=== PATIENT | male | born 1945 ===

== ENCOUNTER 2020-04-03 16:05 | Inpatient (IN) | payer OTHER ==
[~2020-04-03] VITALS: Ht 172.7 cm; Wt 85.5 kg
--- NOTE | 2020-04-03 16:21 | NUR ---
pt biba from residence, report taken from em[facility]. friends on scene state pt has no pmh, meds or allergies. pt awake, drowsy, oriented x 0. making incomprehensible noises, respiratory rate 40s, rapid and shallow. 90% on 15L nrb on arrival. sat 70s on room air per ems. 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 per pt's friends on scene, pt had complained of headache and muscle aches several days prior to this. all monitors in place. pt moaning and squirming. EDMD VanBibber at bedside.
[2020-04-03] MEDS ORDERED: SODIUM CHLORIDE 0.9% 1,000ML IVBOLUS ONE ×2 (16:30)
[2020-04-03] MEDS ORDERED: PLEASE ENTER HEIGHT AND WEIGHT MC SCH (16:30)
[2020-04-03] MEDS ORDERED: SODIUM CHLORIDE FLUSH 10ML SYR IVF ONE (16:30)
[2020-04-03] MEDS ORDERED: LORazepam 2 MG/ML, 1ML IVPush ONE (16:30)
[2020-04-03] MEDS ORDERED: LORazepam 2 MG/ML, 1ML ONE (16:33)
--- NOTE | 2020-04-03 16:39 | NUR ---
SPO2 DROPPED TO 85 % ON 15L NRB, MAINTAINING. EDMD HINDS NOTIFIED. PT ALSO VERY AGITATED, TRYING TO KICK STAFF, GET OUT OF BED, PULL LINES. 0.5 MG IV ATIVAN ORDERED Q15 MIN X 2 BY HUGO HINDS. POC TO INTUBATE IF SPO2 MAINTAINS THIS LEVEL.
--- NOTE | 2020-04-03 16:48 | NUR ---
cxr done, ekg done, piv placed x 2. pt is sinus tach rate 100s on monitor , no ectopy. spo2 83% on 15L NRB, resp rate 50s. lab at bedside for draw.
[2020-04-03 17:06] LABS: BASOPHILS % (AUTO) 0 % (0-1); EOSINOPHILS % (AUTO) 0 % (1-7); LYMPHOCYTES % (AUTO) 8 % (22-44); MEAN CORPUSCULAR HEMOGLOBIN 31.1 pg (27.5-34.5); MEAN CORPUSCULAR HGB CONC 32.7 g/dL (33.2-36.2); MEAN PLATELET VOLUME 10.1 fL (7.4-10.4); MONOCYTES % (AUTO) 11 % (2-9); NEUTROPHILS % (AUTO) 82 % (42-75); PLATELET COUNT 332 x10^3/uL (130-400); RED BLOOD COUNT 6.52 x10^6/uL (4.38-5.82)
--- NOTE | 2020-04-03 17:15 | NUR ---
at 1710, pt intubated by HUGO Salguero, tube size 8.0, 24cm at lip. vent set per RT, rate 16, 450mL tidal volume, 100% fio2. 5 peep assist control. RN instructed by HUGO Salguero to initiate propofol gtt for sedation. soft wrist restraints in place bilaterally.
[2020-04-03 17:20] LABS: ALANINE AMINOTRANSFERASE 34 U/L (12-78); ALBUMIN 2.5 g/dL (3.4-5.0); ANION GAP 15 mmol/L (5-15); CALCIUM 8.7 mg/dL (8.5-10.1); CHLORIDE 128 mmol/L (98-107); CREATININE 4.17 mg/dL (0.7-1.3)
[2020-04-03 17:22] LABS: ALKALINE PHOSPHATASE 138 U/L (45-117); BILIRUBIN,TOTAL 1.9 mg/dL (0.2-1.0); MD NO; TOTAL PROTEIN 7.7 g/dL (6.4-8.2)
[2020-04-03] MEDS ORDERED: ETOMIDATE 20 MG/10 ML IVPush ONE (17:30)
[2020-04-03] MEDS ORDERED: SUCCINYLCHOLINE 20 MG/ML, 10ML IVPush ONE (17:30)
[2020-04-03] MEDS ORDERED: AZITHROMYCIN 500 MG in SODIUM CHLORIDE 0.9% 250 ML IV ONE (17:30)
[2020-04-03] MEDS ORDERED: CEFTRIAXONE PMX 1GM/50ML 50 ML IV ONE (17:30)
[2020-04-03] MEDS ORDERED: CEFTRIAXONE PMX 1GM/50ML 50 ML ONE (17:41)
[2020-04-03 17:45] LABS: ACETONE, SERUM Negative (Negative)
[2020-04-03] MEDS: MIDAZOLAM 1 MG/ML, 5ML IVPush PRN ×4 (17:51→21:30)
[2020-04-03] MEDS ORDERED: INSULIN REGULAR 100 UNITS/ML, 3ML VIAL IVPush ONE (18:00)
[2020-04-03] MEDS ORDERED: MIDAZOLAM 1 MG/ML, 5ML ONE (18:00)
[2020-04-03] MEDS ORDERED: SUCCINYLCHOLINE 20 MG/ML, 10ML ONE (18:00)
[2020-04-03] MEDS ORDERED: PROPOFOL 10 MG/ML, 100ML IV ONE (18:00)
[2020-04-03] MEDS ORDERED: ETOMIDATE 20 MG/10 ML ONE (18:00)
--- NOTE | 2020-04-03 18:20 | NUR ---
EDNM VANBIBBER NOTIFIED PT HYPOTENSIVE AT 75/47, APPROX 1500ML NS BOLUS INFUSED SO FAR. EDNM VANBIBBER DECLINES TO ORDER VASOPRESSORS AT THIS TIME, TO REASSESS WHEN FULL BOLUS IN. EDMD NOTIFIED PT MEETS CRITERIA FOR SEPTIC SHOCK, ADDITIONAL 500ML NS BOLUS ORDERED TO COMPLETE WEIGHT BASED DOSE.
[2020-04-03] MEDS ORDERED: PROPOFOL 100 ML IV PRN (18:30)
[2020-04-03] MEDS ORDERED: NOREPINEPHRINE 8 MG in SODIUM CHLORIDE 0.9% 242 ML IV PRN ×2 (18:30→19:30)
[2020-04-03] MEDS ORDERED: INSULIN SINGLE DOSE, ER ONE (18:31)
[2020-04-03 18:38] LABS: MICROSCOPIC INDICATED
[2020-04-03] MEDS ORDERED: FENTANYL PF 100 MCG/2ML ONE (18:41)
--- NOTE | 2020-04-03 18:44 | NUR ---
VERBAL ORDER RECEIVED TO START LEVOPHED DRIP THROUGH PERIPHERAL LINE. EDMD VANBIBBER AT BEDSIDE FOR CENTRAL LINE PLACEMENT.
[2020-04-03 18:47] LABS: AMPHETAMINE SCREEN, URINE Negative (Negative); BARBITURATE SCREEN, URINE Negative (Negative); BENZODIAZEPINE SCREEN, URINE Negative (Negative); CANNABINOID SCREEN, URINE Negative (Negative); COCAINE SCREEN, URINE Negative (Negative); METHADONE SCREEN, URINE Negative (Negative); OPIATE SCREEN, URINE Negative (Negative)
--- NOTE | 2020-04-03 18:48 | NUR ---
VERBAL ORDER RECEIVED FOR 150MCG FENTANYL IV PUSH ONCE FROM [facility] VANBIBBER FOR SEDATION DURING CENTRAL LINE PLACEMENT. NOREPI INFUSING THROUGH RIGHT WRIST 20 G AT 0.1 MCG/KG/MIN, PROPOFOL INFUSING AT 5MCG/KG/MIN THROUGH LEFT WRIST 20G. 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 [facility] NIKHILBBER AT BEDSIDE FOR CENTRAL LINE PLACEMENT.
[2020-04-03] MEDS ORDERED: FENTANYL PF 100 MCG/2ML IVPush ONE (19:00)
[2020-04-03] MEDS ORDERED: SODIUM BICARB 8.4%,50ML SYR. 100 MEQ in SODIUM CHLORIDE 0.45% 1,000 ML IV SCH (19:00)
[2020-04-03] MEDS ORDERED: SODIUM CHLORIDE 0.9%, 500ML IVBOLUS ONE (19:00)
--- NOTE | 2020-04-03 19:00 | NUR ---
report to RNs Vicki and Sommer at bedside. HUGO Salguero finishing central line placement at this time.
--- NOTE | 2020-04-03 19:04 | NUR ---
REPORT FROM TREY CANALES. PTS BP STILL LOW AFTER CENTRAL LINE PLACEMENT. LEVOPHED INCREASED. WAITING FOR XRAY TO CONFIRM PLACEMENT FOR USE OF CENTRAL LINE
--- NOTE | 2020-04-03 19:13 | NUR ---
TECH AT BEDSIDE FOR EKG AT THIS TIME
[2020-04-03] MEDS ORDERED: PHARMACY MAY ADJ FOR RENAL FX MC SCH (19:30)
[2020-04-03] MEDS ORDERED: SODIUM BICARBONATE 8.4% 150 MEQ in SODIUM CHLORIDE 0.45% 1,000 ML IV SCH (19:30)
[2020-04-03] MEDS ORDERED: LIDOCAINE-MPF 1%, 2ML ENDO PRN (19:30)
[2020-04-03] MEDS ORDERED: BISACODYL 10 MG SUPP PR PRN ×2 (19:30)
[2020-04-03] MEDS ORDERED: SENNA 176 MG/5 ML ORAL SOL NG PRN (19:30)
[2020-04-03] MEDS ORDERED: INSULIN LISPRO 100 UNITS/ML, PEN SQ-INSULIN SCH (19:30)
[2020-04-03] MEDS ORDERED: LORazepam 2 MG/ML, 1ML IVPush PRN (19:30)
--- NOTE | 2020-04-03 19:40 | NUR ---
SODIUM BICARB STARTED AT THIS TIME, ZITHROMAX STARTED CULTURES DRAWN PRIOR TO ABX START.
[2020-04-03] MEDS: PROPOFOL 100 ML IV PRN (19:44)
--- NOTE | 2020-04-03 20:12 | NUR ---
REPORT GIVEN TO KARL CANALES. PT READY FOR TRANSFER TO ICU [address] IS COMPLETE
--- NOTE | 2020-04-03 20:20 | NUR ---
CT CALLED AND RESPIRATORY CALLED FOR PT TO GET CT PRIOR TO ICU TRANSFER
--- NOTE | 2020-04-03 20:29 | NUR ---
pt became agitated while prepping for transfer. sedation increased and documented
[2020-04-03] MEDS ORDERED: FAMOTIDINE 20 MG/2 ML IVPush SCH (21:00)
[2020-04-03] MEDS: D5%-0.45NACL+KCL 20MEQ 1,000 ML IV SCH (21:13)
[2020-04-03] MEDS: HEPARIN 5,000 UNITS/ML, 1ML SQ SCH (21:36)
[2020-04-03] MEDS: FAMOTIDINE 20 MG/2 ML IV SCH (21:36)
[2020-04-03 22:25] LABS: POTASSIUM,URINE RANDOM 50 mmol/L; SODIUM,URINE RANDOM 9 mmol/L
[2020-04-03 22:27] LABS: CHLORIDE,URINE RANDOM < 10 mmol/L
[2020-04-03] MEDS: REGULAR INSULIN 100 UNITS in SODIUM CHLORIDE 0.9% 99 ML IV PRN (22:51)
[2020-04-03 23:00] VITALS: BP 89/55
[2020-04-03] MEDS ORDERED: SODIUM BICARBONATE 8.4% 50 MEQ in SODIUM CHLORIDE 0.45% 1,000 ML IV SCH (23:00)
[2020-04-03] MEDS ORDERED: SODIUM CHLORIDE 0.45% 1,000 ML IV SCH (23:00)
[2020-04-04 00:25] LABS: ACETONE, SERUM Moderate(40mg/dL) (Negative)
[2020-04-04 00:30] LABS: ALBUMIN 2.1 g/dL (3.4-5.0); CHLORIDE 130 mmol/L (98-107)
[2020-04-04 00:36] LABS: ANION GAP 10 mmol/L (5-15); CREATININE 3.71 mg/dL (0.7-1.3)
[2020-04-04] MEDS: PROPOFOL 100 ML IV PRN ×4 (01:51→23:45)
[2020-04-04] MEDS ORDERED: SODIUM CHLORIDE 0.45%, 1,000ML IVBOLUS ONE (03:00)
[2020-04-04] MEDS: D5%-0.45NACL+KCL 20MEQ 1,000 ML IV SCH (03:09)
[2020-04-04] MEDS: NOREPINEPHRINE 8 MG in SODIUM CHLORIDE 0.9% 242 ML IV PRN ×4 (04:08→23:55)
[2020-04-04] MEDS: REGULAR INSULIN 100 UNITS in SODIUM CHLORIDE 0.9% 99 ML IV PRN (04:29)
[2020-04-04] MEDS: HEPARIN 5,000 UNITS/ML, 1ML SQ SCH ×3 (04:57→21:17)
[2020-04-04 04:58] LABS: BASOPHILS % (AUTO) 1 % (0-1); EOSINOPHILS % (AUTO) 0 % (1-7); LYMPHOCYTES % (AUTO) 10 % (22-44); MEAN CORPUSCULAR HEMOGLOBIN 31.8 pg (27.5-34.5); MEAN CORPUSCULAR HGB CONC 34.2 g/dL (33.2-36.2); MEAN PLATELET VOLUME 9.4 fL (7.4-10.4); MONOCYTES % (AUTO) 5 % (2-9); NEUTROPHILS % (AUTO) 84 % (42-75); PLATELET COUNT 228 x10^3/uL (130-400); RED BLOOD COUNT 5.49 x10^6/uL (4.38-5.82); RED CELL DISTRIBUTION WIDTH 13.8 % (9.4-14.8)
[2020-04-04 05:02] LABS: ANION GAP 9 mmol/L (5-15); CHLORIDE 130 mmol/L (98-107)
[2020-04-04 05:03] LABS: BILIRUBIN,TOTAL 1.8 mg/dL (0.2-1.0)
[2020-04-04 05:22] LABS: BILIRUBIN,INDIRECT 0.8 mg/dL (0.0-2.0)
[2020-04-04 05:56] LABS: MD SCAN
[2020-04-04] MEDS: SODIUM BICARBONATE 8.4% 50 MEQ in DEXTROSE 5% 1,000 ML IV SCH ×3 (09:26→23:54)
[2020-04-04] MEDS: THIAMINE 200 MG in SODIUM CHLORIDE 0.9% 50 ML IV SCH (09:27)
[2020-04-04] MEDS: FENTANYL PF 1,000 MCG in SODIUM CHLORIDE 0.9% 80 ML IV PRN ×2 (09:27→19:38)
[2020-04-04] MEDS ORDERED: INSULIN GLARGINE 100 UNITS/ML, PEN SQ-INSULIN SCH ×2 (10:00→21:00)
[2020-04-04] MEDS: INSULIN LISPRO 100 UNITS/ML, PEN SQ-INSULIN SCH ×5 (10:00→19:46)
[2020-04-04] MEDS ORDERED: INSULIN LISPRO 100 UNITS/ML, PEN SQ-INSULIN SCH (11:00)
[2020-04-04 12:04] LABS: ANION GAP 5 mmol/L (5-15); CALCIUM 7.1 mg/dL (8.5-10.1); CHLORIDE 130 mmol/L (98-107); CREATININE 2.79 mg/dL (0.7-1.3)
[2020-04-04] MEDS ORDERED: INSULIN GLARGINE 100 UNITS/ML, PEN ONE (14:33)
[2020-04-04] MEDS: CEFTRIAXONE PMX 1GM/50ML 50 ML IV SCH (16:29)
[2020-04-04] MEDS ORDERED: REMDESIVIR 100 MG in SODIUM CHLORIDE 0.9% 250 ML IVPB ONE ×2 (17:00→19:00)
[2020-04-04] MEDS ORDERED: ASCORBIC ACID 500 MG TABLET PO SCH (17:00)
[2020-04-04] MEDS: AZITHROMYCIN 500 MG in SODIUM CHLORIDE 0.9% 250 ML IV SCH (17:12)
[2020-04-04 18:27] LABS: ANION GAP 5 mmol/L (5-15); CALCIUM 6.8 mg/dL (8.5-10.1); CHLORIDE 125 mmol/L (98-107); CREATININE 2.68 mg/dL (0.7-1.3)
[2020-04-04 18:29] LABS: C-REACTIVE PROTEIN, QUANT 5.6 mg/dL (0.02-0.49)
[2020-04-04] MEDS: ASCORBIC ACID 500 MG TABLET PO SCH (21:17)
[2020-04-04] MEDS: MELATONIN 5 MG TABLET PO/NG SCH (21:17)
[2020-04-04] MEDS: FAMOTIDINE 20 MG/2 ML IV SCH (21:18)
[2020-04-05] MEDS: INSULIN LISPRO 100 UNITS/ML, PEN SQ-INSULIN SCH ×8 (03:16→23:44)
[2020-04-05 03:44] LABS: ALANINE AMINOTRANSFERASE 20 U/L (12-78); ALBUMIN 1.7 g/dL (3.4-5.0); ANION GAP 4 mmol/L (5-15); CALCIUM 6.8 mg/dL (8.5-10.1); CHLORIDE 123 mmol/L (98-107); CREATININE 2.18 mg/dL (0.7-1.3)
[2020-04-05 03:45] LABS: MEAN CORPUSCULAR HEMOGLOBIN 31.8 pg (27.5-34.5); MEAN CORPUSCULAR HGB CONC 34.4 g/dL (33.2-36.2); MEAN PLATELET VOLUME 9.7 fL (7.4-10.4); RED BLOOD COUNT 5.14 x10^6/uL (4.38-5.82); RED CELL DISTRIBUTION WIDTH 13.7 % (9.4-14.8)
[2020-04-05 03:47] LABS: ALKALINE PHOSPHATASE 108 U/L (45-117); BILIRUBIN,TOTAL 1.7 mg/dL (0.2-1.0); TOTAL PROTEIN 5.3 g/dL (6.4-8.2)
[2020-04-05 04:15] LABS: MD YES; PLATELET COUNT 78 x10^3/uL (130-400)
[2020-04-05 04:18] LABS: BAND#(MANUAL) 0.33 x10^3/uL; BANDS%(MANUAL) 3 % (0-7); BASOS#(MANUAL) 0.22 x10^3/uL (0-0.1); BASOS% (MANUAL) 2 % (0-1); EOS#(MANUAL) 0.11 x10^3/uL (0.0-0.4); EOS% (MANUAL) 1 % (1-7); LYMPH#(MANUAL) 0.76 x10^3/uL (1-3.4); LYMPHS% (MANUAL) 7 % (22-44); MONOS#(MANUAL) 0.22 x10^3/uL (0.3-2.7); MONOS% (MANUAL) 2 % (2-9); MYELOCYTES# (MANUAL) 0.11 x10^3/uL (0-0); MYELOCYTES% (MANUAL) 1 % (0-0); SEG#(MANUAL) 9.16 x10^3/uL (1.8-6.8); SEGS% (MANUAL) 84 % (42-75)
[2020-04-05 04:19] LABS: ANISOCYTOSIS 1+; POLYCHROMASIA 1+
[2020-04-05 04:20] LABS: <PLATELET ESTIMATE> DECREASED; <PLT MORPHOLOGY> NORMAL PLT MORPH
[2020-04-05] MEDS: PROPOFOL 100 ML IV PRN ×3 (05:28→17:02)
[2020-04-05] MEDS: HEPARIN 5,000 UNITS/ML, 1ML SQ SCH (05:29)
[2020-04-05] MEDS: SODIUM BICARBONATE 8.4% 50 MEQ in DEXTROSE 5% 1,000 ML IV SCH ×2 (05:56→07:49)
[2020-04-05] MEDS ORDERED: MAGNESIUM SULFATE PMX 2GM/50ML 50 ML IV ONE (07:00)
[2020-04-05] MEDS: FENTANYL PF 1,000 MCG in SODIUM CHLORIDE 0.9% 80 ML IV PRN (07:49)
[2020-04-05 08:35] LABS: D-DIMER (DIC) 34.53 ug/mlFEU (0.00-0.52); PROTIME 12.7 Seconds (9.6-11.5)
[2020-04-05] MEDS: ZINC SULFATE 220 MG CAPSULE PO SCH (08:40)
[2020-04-05] MEDS: CHOLECALCIFEROL 5,000u TAB PO SCH (08:40)
[2020-04-05] MEDS: ASCORBIC ACID 500 MG TABLET PO SCH ×2 (08:40→20:53)
[2020-04-05] MEDS: THIAMINE 200 MG in SODIUM CHLORIDE 0.9% 50 ML IV SCH (08:40)
[2020-04-05] MEDS: DEXAMETHASONE 4 MG/ML, 1ML IVPush SCH (08:40)
[2020-04-05] MEDS ORDERED: INSULIN GLARGINE 100 UNITS/ML, PEN SQ-INSULIN SCH ×2 (09:00→21:00)
[2020-04-05] MEDS ORDERED: INSULIN LISPRO 100 UNITS/ML, PEN SQ-INSULIN SCH ×3 (10:00→16:00)
[2020-04-05] MEDS: ARGATROBAN 250 MG in SODIUM CHLORIDE 0.9% 247.5 ML IV PRN (11:07)
[2020-04-05] MEDS: DEXTROSE 5% 1,000 ML IV SCH ×2 (11:08→17:45)
[2020-04-05] MEDS: NOREPINEPHRINE 8 MG in SODIUM CHLORIDE 0.9% 242 ML IV PRN ×2 (11:47→17:02)
[2020-04-05] MEDS ORDERED: FENTANYL PF 2,500 MCG in SODIUM CHLORIDE 0.9% 200 ML IV PRN (14:30)
[2020-04-05] MEDS ORDERED: INSULIN LISPRO 100 UNITS/ML, PEN SQ-INSULIN ONE (16:30)
[2020-04-05] MEDS: CEFTRIAXONE PMX 1GM/50ML 50 ML IV SCH (16:55)
[2020-04-05] MEDS: AZITHROMYCIN 500 MG in SODIUM CHLORIDE 0.9% 250 ML IV SCH (17:41)
[2020-04-05] MEDS: REMDESIVIR 50 MG in SODIUM CHLORIDE 0.9% 250 ML IVPB SCH (19:29)
[2020-04-05] MEDS: MELATONIN 5 MG TABLET PO/NG SCH (20:53)
[2020-04-05] MEDS: FAMOTIDINE 20 MG/2 ML IV SCH (20:53)
[2020-04-06] MEDS: NOREPINEPHRINE 8 MG in SODIUM CHLORIDE 0.9% 242 ML IV PRN ×2 (02:00→20:43)
[2020-04-06] MEDS: PROPOFOL 100 ML IV PRN ×2 (02:01→20:43)
[2020-04-06] MEDS: FENTANYL PF 2,500 MCG in SODIUM CHLORIDE 0.9% 200 ML IV PRN (03:33)
[2020-04-06] MEDS: INSULIN LISPRO 100 UNITS/ML, PEN SQ-INSULIN SCH ×10 (04:21→20:40)
[2020-04-06 04:48] LABS: BASOPHILS % (AUTO) 0 % (0-1); EOSINOPHILS % (AUTO) 0 % (1-7); LYMPHOCYTES % (AUTO) 8 % (22-44); MEAN CORPUSCULAR HEMOGLOBIN 31.4 pg (27.5-34.5); MEAN CORPUSCULAR HGB CONC 34.1 g/dL (33.2-36.2); MEAN PLATELET VOLUME 10.1 fL (7.4-10.4); MONOCYTES % (AUTO) 5 % (2-9); NEUTROPHILS % (AUTO) 88 % (42-75); PLATELET COUNT 55 x10^3/uL (130-400); RED BLOOD COUNT 4.88 x10^6/uL (4.38-5.82); RED CELL DISTRIBUTION WIDTH 13.5 % (9.4-14.8)
[2020-04-06 04:56] LABS: ALBUMIN 1.5 g/dL (3.4-5.0); ANION GAP 2 mmol/L (5-15); CALCIUM 6.9 mg/dL (8.5-10.1); CHLORIDE 121 mmol/L (98-107)
[2020-04-06 05:00] LABS: ALANINE AMINOTRANSFERASE 18 U/L (12-78); ALKALINE PHOSPHATASE 119 U/L (45-117); BILIRUBIN,TOTAL 1.2 mg/dL (0.2-1.0); CREATININE 1.51 mg/dL (0.7-1.3); TOTAL PROTEIN 5.3 g/dL (6.4-8.2); TRIGLYCERIDES 143 mg/dL (50-200)
[2020-04-06 05:49] LABS: MD SCAN
[2020-04-06] MEDS: INSULIN GLARGINE 100 UNITS/ML, PEN SQ-INSULIN SCH ×2 (08:17→21:49)
[2020-04-06] MEDS: THIAMINE 200 MG in SODIUM CHLORIDE 0.9% 50 ML IV SCH (09:44)
[2020-04-06] MEDS: AMPICILLIN/SULBACTAM 3 GM in SODIUM CHLORIDE 0.9% 100 ML IV SCH ×3 (09:44→22:44)
[2020-04-06] MEDS: ZINC SULFATE 220 MG CAPSULE PO SCH (09:44)
[2020-04-06] MEDS: ASCORBIC ACID 500 MG TABLET PO SCH ×2 (09:44→20:41)
[2020-04-06] MEDS: CHOLECALCIFEROL 5,000u TAB PO SCH (09:45)
[2020-04-06] MEDS: DEXAMETHASONE 4 MG/ML, 1ML IVPush SCH (09:48)
[2020-04-06] MEDS ORDERED: DEXTROSE 50%, 50ML SYRINGE IVPush ONE (12:00)
[2020-04-06] MEDS ORDERED: GLUCAGON 1 MG IM PRN (12:00)
[2020-04-06] MEDS ORDERED: DEXTROSE 4 GM TAB.CHEW PO PRN (12:00)
[2020-04-06] MEDS ORDERED: DEXTROSE 50%, 50ML SYRINGE IVPush PRN (12:00)
[2020-04-06] MEDS: AZITHROMYCIN 500 MG in SODIUM CHLORIDE 0.9% 250 ML IV SCH (17:56)
[2020-04-06] MEDS: REMDESIVIR 50 MG in SODIUM CHLORIDE 0.9% 250 ML IVPB SCH (20:23)
[2020-04-06] MEDS: SODIUM CHLORIDE FLUSH 10ML SYR IVF SCH (20:40)
[2020-04-06] MEDS: MELATONIN 5 MG TABLET PO/NG SCH (20:40)
[2020-04-06] MEDS: FAMOTIDINE 20 MG/2 ML IV SCH (20:40)
[2020-04-07] MEDS: INSULIN LISPRO 100 UNITS/ML, PEN SQ-INSULIN SCH ×12 (00:11→20:20)
[2020-04-07] MEDS: AMPICILLIN/SULBACTAM 3 GM in SODIUM CHLORIDE 0.9% 100 ML IV SCH ×3 (03:48→15:57)
[2020-04-07 03:55] LABS: ALANINE AMINOTRANSFERASE 22 U/L (12-78); ALBUMIN 1.6 g/dL (3.4-5.0); ANION GAP 2 mmol/L (5-15); CALCIUM 7.2 mg/dL (8.5-10.1); CHLORIDE 122 mmol/L (98-107); CREATININE 1.17 mg/dL (0.7-1.3); MEAN CORPUSCULAR HEMOGLOBIN 31.2 pg (27.5-34.5); MEAN CORPUSCULAR HGB CONC 33.7 g/dL (33.2-36.2); PLATELET COUNT 63 x10^3/uL (130-400); RED BLOOD COUNT 4.39 x10^6/uL (4.38-5.82); RED CELL DISTRIBUTION WIDTH 13.7 % (9.4-14.8)
[2020-04-07 03:57] LABS: ALKALINE PHOSPHATASE 110 U/L (45-117); BILIRUBIN,TOTAL 0.9 mg/dL (0.2-1.0); TOTAL PROTEIN 5.1 g/dL (6.4-8.2)
[2020-04-07 04:47] LABS: MD YES
[2020-04-07 04:53] LABS: <PLATELET ESTIMATE> DECREASED; ANISOCYTOSIS 1+; BAND#(MANUAL) 0.14 x10^3/uL; BANDS%(MANUAL) 1 % (0-7); LYMPH#(MANUAL) 0.54 x10^3/uL (1-3.4); LYMPHS% (MANUAL) 4 % (22-44); METAMYELOCYTES# (MANUAL) 0.27 x10^3/uL (0-0); METAMYELOCYTES% (MANUAL) 2 % (0-1); MONOS#(MANUAL) 0.68 x10^3/uL (0.3-2.7); MONOS% (MANUAL) 5 % (2-9); MYELOCYTES# (MANUAL) 0.14 x10^3/uL (0-0); MYELOCYTES% (MANUAL) 1 % (0-0); POLYCHROMASIA 1+; REACTIVE LYMPHS # (MANUAL) 0.27 x10^3/uL (0-0); REACTIVE LYMPHS % (MANUAL) 2 % (0-0); SEG#(MANUAL) 11.56 x10^3/uL (1.8-6.8); SEGS% (MANUAL) 85 % (42-75)
[2020-04-07 04:54] LABS: LARGE PLATELETS 1+
[2020-04-07] MEDS: PROPOFOL 100 ML IV PRN ×2 (05:44→17:00)
[2020-04-07] MEDS: ARGATROBAN 250 MG in SODIUM CHLORIDE 0.9% 247.5 ML IV PRN (08:29)
[2020-04-07] MEDS: THIAMINE 200 MG in SODIUM CHLORIDE 0.9% 50 ML IV SCH (09:49)
[2020-04-07] MEDS: ASCORBIC ACID 500 MG TABLET PO SCH ×2 (09:50→20:20)
[2020-04-07] MEDS: ZINC SULFATE 220 MG CAPSULE PO SCH (09:50)
[2020-04-07] MEDS: CHOLECALCIFEROL 5,000u TAB PO SCH (09:50)
[2020-04-07] MEDS: DEXAMETHASONE 4 MG/ML, 1ML IVPush SCH (09:51)
[2020-04-07] MEDS: SODIUM CHLORIDE FLUSH 10ML SYR IVF SCH ×2 (09:51→20:21)
[2020-04-07] MEDS: INSULIN GLARGINE 100 UNITS/ML, PEN SQ-INSULIN SCH ×2 (09:55→20:21)
[2020-04-07] MEDS: AZITHROMYCIN 500 MG in SODIUM CHLORIDE 0.9% 250 ML IV SCH (17:27)
[2020-04-07] MEDS: FAMOTIDINE 20 MG/2 ML IV SCH (20:20)
[2020-04-07] MEDS: MELATONIN 5 MG TABLET PO/NG SCH (20:20)
[2020-04-07] MEDS: REMDESIVIR 100 MG in SODIUM CHLORIDE 0.9% 250 ML IVPB SCH (21:44)
[2020-04-08] MEDS: AMPICILLIN/SULBACTAM 3 GM in SODIUM CHLORIDE 0.9% 100 ML IV SCH ×4 (00:18→18:00)
[2020-04-08] MEDS: INSULIN LISPRO 100 UNITS/ML, PEN SQ-INSULIN SCH ×10 (00:23→23:43)
[2020-04-08] MEDS: PROPOFOL 100 ML IV PRN ×2 (02:55→14:09)
[2020-04-08 04:20] LABS: MEAN CORPUSCULAR HEMOGLOBIN 31.2 pg (27.5-34.5); MEAN CORPUSCULAR HGB CONC 33.8 g/dL (33.2-36.2); MEAN PLATELET VOLUME 10.3 fL (7.4-10.4); PLATELET COUNT 71 x10^3/uL (130-400); RED BLOOD COUNT 4.27 x10^6/uL (4.38-5.82); RED CELL DISTRIBUTION WIDTH 13.8 % (9.4-14.8)
[2020-04-08 04:29] LABS: ALBUMIN 1.6 g/dL (3.4-5.0); CALCIUM 7.3 mg/dL (8.5-10.1); CHLORIDE 118 mmol/L (98-107)
[2020-04-08 04:33] LABS: ALANINE AMINOTRANSFERASE 16 U/L (12-78); ALKALINE PHOSPHATASE 113 U/L (45-117); BILIRUBIN,TOTAL 0.8 mg/dL (0.2-1.0); CREATININE 1.13 mg/dL (0.7-1.3); TOTAL PROTEIN 5.3 g/dL (6.4-8.2)
[2020-04-08 04:36] LABS: ANION GAP 2 mmol/L (5-15)
[2020-04-08 05:44] LABS: MD YES
[2020-04-08 05:46] LABS: BAND#(MANUAL) 0.12 x10^3/uL; BANDS%(MANUAL) 1 % (0-7); LYMPHS% (MANUAL) 6 % (22-44); METAMYELOCYTES# (MANUAL) 0.23 x10^3/uL (0-0); METAMYELOCYTES% (MANUAL) 2 % (0-1); MONOS#(MANUAL) 0.35 x10^3/uL (0.3-2.7); MONOS% (MANUAL) 3 % (2-9); POLYCHROMASIA 1+; REACTIVE LYMPHS # (MANUAL) 0.12 x10^3/uL (0-0); REACTIVE LYMPHS % (MANUAL) 1 % (0-0); SEG#(MANUAL) 10.18 x10^3/uL (1.8-6.8); SEGS% (MANUAL) 87 % (42-75)
[2020-04-08 05:47] LABS: <PLATELET ESTIMATE> DECREASED; <PLT MORPHOLOGY> NORMAL PLT MORPH
[2020-04-08] MEDS: THIAMINE 200 MG in SODIUM CHLORIDE 0.9% 50 ML IV SCH (08:18)
[2020-04-08] MEDS: ASCORBIC ACID 500 MG TABLET PO SCH ×2 (08:20→20:34)
[2020-04-08] MEDS: CHOLECALCIFEROL 5,000u TAB PO SCH (08:20)
[2020-04-08] MEDS: DEXAMETHASONE 4 MG/ML, 1ML IVPush SCH (08:20)
[2020-04-08] MEDS: ZINC SULFATE 220 MG CAPSULE PO SCH (08:20)
[2020-04-08] MEDS: SODIUM CHLORIDE FLUSH 10ML SYR IVF SCH ×2 (08:21→20:34)
[2020-04-08] MEDS: INSULIN GLARGINE 100 UNITS/ML, PEN SQ-INSULIN SCH ×2 (09:47→20:45)
[2020-04-08] MEDS ORDERED: GUAIFENESIN/COD200MG-20MG/10ML LIQUID PO PRN (14:30)
[2020-04-08] MEDS: FENTANYL PF 2,500 MCG in SODIUM CHLORIDE 0.9% 200 ML IV PRN (15:47)
[2020-04-08] MEDS: AZITHROMYCIN 500 MG in SODIUM CHLORIDE 0.9% 250 ML IV SCH (16:46)
[2020-04-08] MEDS: MELATONIN 5 MG TABLET PO/NG SCH (20:34)
[2020-04-08] MEDS: FAMOTIDINE 20 MG/2 ML IV SCH (20:34)
[2020-04-08] MEDS: REMDESIVIR 100 MG in SODIUM CHLORIDE 0.9% 250 ML IVPB SCH (22:28)
[2020-04-09] MEDS: PROPOFOL 100 ML IV PRN ×2 (01:02→10:36)
[2020-04-09] MEDS: AMPICILLIN/SULBACTAM 3 GM in SODIUM CHLORIDE 0.9% 100 ML IV SCH ×4 (01:02→18:06)
[2020-04-09] MEDS: INSULIN LISPRO 100 UNITS/ML, PEN SQ-INSULIN SCH ×4 (05:01→21:20)
[2020-04-09 05:22] LABS: MEAN CORPUSCULAR HEMOGLOBIN 31.7 pg (27.5-34.5); MEAN CORPUSCULAR HGB CONC 34.5 g/dL (33.2-36.2); MEAN PLATELET VOLUME 9.9 fL (7.4-10.4); PLATELET COUNT 75 x10^3/uL (130-400); RED BLOOD COUNT 4.33 x10^6/uL (4.38-5.82); RED CELL DISTRIBUTION WIDTH 13.7 % (9.4-14.8)
[2020-04-09 05:27] LABS: ANION GAP 4 mmol/L (5-15); CALCIUM 8.2 mg/dL (8.5-10.1); CHLORIDE 113 mmol/L (98-107); CREATININE 1.15 mg/dL (0.7-1.3)
[2020-04-09 05:29] LABS: BILIRUBIN,TOTAL 0.9 mg/dL (0.2-1.0); TRIGLYCERIDES 119 mg/dL (50-200)
[2020-04-09 05:47] LABS: MD YES
[2020-04-09 05:49] LABS: BAND#(MANUAL) 0.46 x10^3/uL; BANDS%(MANUAL) 4 % (0-7); LYMPH#(MANUAL) 1.04 x10^3/uL (1-3.4); LYMPHS% (MANUAL) 9 % (22-44); METAMYELOCYTES# (MANUAL) 0.23 x10^3/uL (0-0); METAMYELOCYTES% (MANUAL) 2 % (0-1); MONOS#(MANUAL) 0.69 x10^3/uL (0.3-2.7); MONOS% (MANUAL) 6 % (2-9); POLYCHROMASIA 1+; REACTIVE LYMPHS # (MANUAL) 0.12 x10^3/uL (0-0); REACTIVE LYMPHS % (MANUAL) 1 % (0-0); SEG#(MANUAL) 8.97 x10^3/uL (1.8-6.8); SEGS% (MANUAL) 78 % (42-75)
[2020-04-09 05:50] LABS: <PLATELET ESTIMATE> DECREASED; <PLT MORPHOLOGY> NORMAL PLT MORPH
[2020-04-09] MEDS ORDERED: FUROSEMIDE 40 MG/4 ML IV SCH (09:00)
[2020-04-09] MEDS: DEXAMETHASONE 4 MG/ML, 1ML IVPush SCH (09:06)
[2020-04-09] MEDS: SENNA/DOCUSATE TABLET NG PRN (09:07)
[2020-04-09] MEDS: ASCORBIC ACID 500 MG TABLET PO SCH ×2 (09:07→20:18)
[2020-04-09] MEDS: CHOLECALCIFEROL 5,000u TAB PO SCH (09:07)
[2020-04-09] MEDS: ZINC SULFATE 220 MG CAPSULE PO SCH (09:07)
[2020-04-09] MEDS: THIAMINE 200 MG in SODIUM CHLORIDE 0.9% 50 ML IV SCH (09:07)
[2020-04-09] MEDS: SODIUM CHLORIDE FLUSH 10ML SYR IVF SCH ×2 (09:08→20:18)
[2020-04-09] MEDS: INSULIN GLARGINE 100 UNITS/ML, PEN SQ-INSULIN SCH ×2 (09:10→21:21)
[2020-04-09] MEDS: MELATONIN 5 MG TABLET PO/NG SCH (20:18)
[2020-04-09] MEDS: FAMOTIDINE 20 MG/2 ML IV SCH (20:19)
[2020-04-10] MEDS: PROPOFOL 100 ML IV PRN ×2 (00:01→06:43)
[2020-04-10] MEDS: INSULIN LISPRO 100 UNITS/ML, PEN SQ-INSULIN SCH ×4 (03:27→21:08)
[2020-04-10 03:53] LABS: BASOPHILS % (AUTO) 0 % (0-1); EOSINOPHILS % (AUTO) 0 % (1-7); LYMPHOCYTES % (AUTO) 5 % (22-44); MEAN CORPUSCULAR HEMOGLOBIN 31.3 pg (27.5-34.5); MEAN CORPUSCULAR HGB CONC 33.9 g/dL (33.2-36.2); MEAN PLATELET VOLUME 10.7 fL (7.4-10.4); MONOCYTES % (AUTO) 7 % (2-9); NEUTROPHILS % (AUTO) 88 % (42-75); PLATELET COUNT 93 x10^3/uL (130-400); RED BLOOD COUNT 4.29 x10^6/uL (4.38-5.82); RED CELL DISTRIBUTION WIDTH 13.6 % (9.4-14.8)
[2020-04-10 04:08] LABS: ANION GAP 5 mmol/L (5-15); CALCIUM 8.1 mg/dL (8.5-10.1); CHLORIDE 110 mmol/L (98-107); CREATININE 1.37 mg/dL (0.7-1.3)
[2020-04-10 04:09] LABS: BILIRUBIN,TOTAL 0.9 mg/dL (0.2-1.0)
[2020-04-10 04:23] LABS: MD SCAN
[2020-04-10] MEDS: LACTULOSE 20 GM/30 ML UDC NG PRN (04:37)
[2020-04-10] MEDS: FENTANYL PF 2,500 MCG in SODIUM CHLORIDE 0.9% 200 ML IV PRN (04:38)
[2020-04-10] MEDS: AMPICILLIN/SULBACTAM 3 GM in SODIUM CHLORIDE 0.9% 100 ML IV SCH ×4 (04:55→21:08)
[2020-04-10] MEDS: THIAMINE 100MG TABLET PO SCH (09:00)
[2020-04-10] MEDS: ASCORBIC ACID 500 MG TABLET PO SCH ×2 (09:13→21:08)
[2020-04-10] MEDS: FAMOTIDINE 20 MG/2 ML IV SCH (09:13)
[2020-04-10] MEDS: CHOLECALCIFEROL 5,000u TAB PO SCH (09:13)
[2020-04-10] MEDS: DEXAMETHASONE 4 MG/ML, 1ML IVPush SCH (09:13)
[2020-04-10] MEDS: ZINC SULFATE 220 MG CAPSULE PO SCH (09:13)
[2020-04-10] MEDS: SODIUM CHLORIDE FLUSH 10ML SYR IVF SCH ×2 (09:14→21:08)
[2020-04-10] MEDS: INSULIN GLARGINE 100 UNITS/ML, PEN SQ-INSULIN SCH ×2 (09:20→21:09)
[2020-04-10] MEDS: SENNA/DOCUSATE TABLET NG PRN (09:33)
[2020-04-11] MEDS: AMPICILLIN/SULBACTAM 3 GM in SODIUM CHLORIDE 0.9% 100 ML IV SCH ×4 (02:48→20:04)
[2020-04-11] MEDS: LACTULOSE 20 GM/30 ML UDC NG PRN (02:48)
[2020-04-11] MEDS: INSULIN LISPRO 100 UNITS/ML, PEN SQ-INSULIN SCH ×4 (02:49→20:04)
[2020-04-11 04:46] LABS: MEAN CORPUSCULAR HEMOGLOBIN 31.6 pg (27.5-34.5); MEAN CORPUSCULAR HGB CONC 34.2 g/dL (33.2-36.2); MEAN PLATELET VOLUME 9.8 fL (7.4-10.4); PLATELET COUNT 100 x10^3/uL (130-400); RED BLOOD COUNT 4.09 x10^6/uL (4.38-5.82); RED CELL DISTRIBUTION WIDTH 13.6 % (9.4-14.8)
[2020-04-11 04:50] LABS: ANION GAP 7 mmol/L (5-15); CALCIUM 8.1 mg/dL (8.5-10.1); CHLORIDE 113 mmol/L (98-107); CREATININE 1.26 mg/dL (0.7-1.3)
[2020-04-11 04:52] LABS: BILIRUBIN,TOTAL 0.8 mg/dL (0.2-1.0)
[2020-04-11 05:43] LABS: MD YES
[2020-04-11 05:45] LABS: <PLATELET ESTIMATE> DECREASED; <PLT MORPHOLOGY> NORMAL PLT MORPH; LYMPH#(MANUAL) 1.56 x10^3/uL (1-3.4); LYMPHS% (MANUAL) 9 % (22-44); MONOS#(MANUAL) 1.21 x10^3/uL (0.3-2.7); MONOS% (MANUAL) 7 % (2-9); POLYCHROMASIA 1+; SEG#(MANUAL) 14.53 x10^3/uL (1.8-6.8); SEGS% (MANUAL) 84 % (42-75)
[2020-04-11] MEDS: FENTANYL PF 2,500 MCG in SODIUM CHLORIDE 0.9% 200 ML IV PRN ×2 (08:52→23:47)
[2020-04-11] MEDS: ARGATROBAN 250 MG in SODIUM CHLORIDE 0.9% 247.5 ML IV PRN (08:52)
[2020-04-11] MEDS: THIAMINE 100MG TABLET PO SCH (08:53)
[2020-04-11] MEDS: ZINC SULFATE 220 MG CAPSULE PO SCH (08:53)
[2020-04-11] MEDS: ASCORBIC ACID 500 MG TABLET PO SCH ×2 (08:53→20:04)
[2020-04-11] MEDS: SODIUM CHLORIDE FLUSH 10ML SYR IVF SCH ×2 (08:54→20:04)
[2020-04-11] MEDS: FAMOTIDINE 20 MG TABLET PO SCH (08:54)
[2020-04-11] MEDS: CHOLECALCIFEROL 5,000u TAB PO SCH (08:54)
[2020-04-11] MEDS: FUROSEMIDE 40 MG/4 ML IV SCH (08:55)
[2020-04-11] MEDS: DEXAMETHASONE 4 MG/ML, 1ML IVPush SCH (08:55)
[2020-04-11] MEDS: INSULIN GLARGINE 100 UNITS/ML, PEN SQ-INSULIN SCH ×2 (08:56→20:05)
[2020-04-12] MEDS: AMPICILLIN/SULBACTAM 3 GM in SODIUM CHLORIDE 0.9% 100 ML IV SCH ×4 (01:50→21:02)
[2020-04-12] MEDS: INSULIN LISPRO 100 UNITS/ML, PEN SQ-INSULIN SCH ×4 (02:03→21:00)
[2020-04-12 04:56] LABS: BASOPHILS % (AUTO) 0 % (0-1); EOSINOPHILS % (AUTO) 1 % (1-7); LYMPHOCYTES % (AUTO) 5 % (22-44); MEAN CORPUSCULAR HEMOGLOBIN 31.8 pg (27.5-34.5); MEAN CORPUSCULAR HGB CONC 34.2 g/dL (33.2-36.2); MEAN PLATELET VOLUME 10.1 fL (7.4-10.4); MONOCYTES % (AUTO) 7 % (2-9); NEUTROPHILS % (AUTO) 87 % (42-75); PLATELET COUNT 132 x10^3/uL (130-400); RED BLOOD COUNT 3.89 x10^6/uL (4.38-5.82); RED CELL DISTRIBUTION WIDTH 13.5 % (9.4-14.8)
[2020-04-12 05:00] LABS: ANION GAP 3 mmol/L (5-15); CHLORIDE 113 mmol/L (98-107); CREATININE 1.15 mg/dL (0.7-1.3)
[2020-04-12 05:01] LABS: BILIRUBIN,TOTAL 0.7 mg/dL (0.2-1.0); TRIGLYCERIDES 81 mg/dL (50-200)
[2020-04-12 05:20] LABS: MD NO
[2020-04-12] MEDS ORDERED: OXYcodone 5 MG/5 ML ORAL.SOL UDC PO/NG PRN (08:30)
[2020-04-12] MEDS: DEXAMETHASONE 4 MG/ML, 1ML IVPush SCH (09:34)
[2020-04-12] MEDS: THIAMINE 100MG TABLET PO SCH (09:34)
[2020-04-12] MEDS: ZINC SULFATE 220 MG CAPSULE PO SCH (09:34)
[2020-04-12] MEDS: FAMOTIDINE 20 MG TABLET PO SCH (09:34)
[2020-04-12] MEDS: FUROSEMIDE 40 MG/4 ML IV SCH (09:34)
[2020-04-12] MEDS: SODIUM CHLORIDE FLUSH 10ML SYR IVF SCH ×2 (09:35→21:00)
[2020-04-12] MEDS: CHOLECALCIFEROL 5,000u TAB PO SCH (09:35)
[2020-04-12] MEDS: ASCORBIC ACID 500 MG TABLET PO SCH ×2 (09:35→21:02)
[2020-04-12] MEDS: INSULIN GLARGINE 100 UNITS/ML, PEN SQ-INSULIN SCH ×2 (09:42→20:59)
[2020-04-12] MEDS: FENTANYL PF 2,500 MCG in SODIUM CHLORIDE 0.9% 200 ML IV PRN (13:56)
[2020-04-13] MEDS: PROPOFOL 100 ML IV PRN ×2 (01:19→12:32)
[2020-04-13] MEDS: AMPICILLIN/SULBACTAM 3 GM in SODIUM CHLORIDE 0.9% 100 ML IV SCH ×4 (02:56→20:52)
[2020-04-13] MEDS: INSULIN LISPRO 100 UNITS/ML, PEN SQ-INSULIN SCH ×4 (02:58→20:53)
[2020-04-13 05:28] LABS: BASOPHILS % (AUTO) 0 % (0-1); EOSINOPHILS % (AUTO) 1 % (1-7); LYMPHOCYTES % (AUTO) 6 % (22-44); MEAN CORPUSCULAR HEMOGLOBIN 31.4 pg (27.5-34.5); MEAN CORPUSCULAR HGB CONC 33.8 g/dL (33.2-36.2); MEAN PLATELET VOLUME 9.9 fL (7.4-10.4); MONOCYTES % (AUTO) 8 % (2-9); NEUTROPHILS % (AUTO) 86 % (42-75); PLATELET COUNT 146 x10^3/uL (130-400); RED BLOOD COUNT 3.67 x10^6/uL (4.38-5.82); RED CELL DISTRIBUTION WIDTH 13.4 % (9.4-14.8)
[2020-04-13 05:29] LABS: MD NO
[2020-04-13 05:30] LABS: CHLORIDE 113 mmol/L (98-107)
[2020-04-13 05:39] LABS: ANION GAP 3 mmol/L (5-15); BILIRUBIN,TOTAL 0.7 mg/dL (0.2-1.0); CALCIUM 8.1 mg/dL (8.5-10.1); CREATININE 1.11 mg/dL (0.7-1.3)
[2020-04-13] MEDS: FENTANYL PF 2,500 MCG in SODIUM CHLORIDE 0.9% 200 ML IV PRN (06:51)
[2020-04-13] MEDS: NOREPINEPHRINE 8 MG in SODIUM CHLORIDE 0.9% 242 ML IV PRN (08:08)
[2020-04-13] MEDS: ARGATROBAN 250 MG in SODIUM CHLORIDE 0.9% 247.5 ML IV PRN (08:10)
[2020-04-13] MEDS: ZINC SULFATE 220 MG CAPSULE PO SCH (08:46)
[2020-04-13] MEDS: CHOLECALCIFEROL 5,000u TAB PO SCH (08:46)
[2020-04-13] MEDS: DEXAMETHASONE 4 MG/ML, 1ML IVPush SCH (08:46)
[2020-04-13] MEDS: THIAMINE 100MG TABLET PO SCH (08:46)
[2020-04-13] MEDS: ASCORBIC ACID 500 MG TABLET PO SCH ×2 (08:46→21:01)
[2020-04-13] MEDS: SODIUM CHLORIDE FLUSH 10ML SYR IVF SCH ×2 (08:47→21:00)
[2020-04-13] MEDS: FAMOTIDINE 20 MG TABLET PO SCH (08:47)
[2020-04-13] MEDS: FUROSEMIDE 40 MG/4 ML IV SCH (10:09)
[2020-04-13] MEDS: INSULIN GLARGINE 100 UNITS/ML, PEN SQ-INSULIN SCH ×2 (10:10→20:53)
[2020-04-14] MEDS: AMPICILLIN/SULBACTAM 3 GM in SODIUM CHLORIDE 0.9% 100 ML IV SCH ×4 (02:33→20:54)
[2020-04-14] MEDS: INSULIN LISPRO 100 UNITS/ML, PEN SQ-INSULIN SCH ×4 (02:37→21:08)
[2020-04-14] MEDS: PROPOFOL 100 ML IV PRN ×2 (04:18→20:55)
[2020-04-14] MEDS: FENTANYL PF 2,500 MCG in SODIUM CHLORIDE 0.9% 200 ML IV PRN (06:01)
[2020-04-14 06:05] LABS: BASOPHILS % (AUTO) 0 % (0-1); EOSINOPHILS % (AUTO) 1 % (1-7); LYMPHOCYTES % (AUTO) 8 % (22-44); MEAN CORPUSCULAR HEMOGLOBIN 31.5 pg (27.5-34.5); MEAN CORPUSCULAR HGB CONC 33.8 g/dL (33.2-36.2); MEAN PLATELET VOLUME 9.8 fL (7.4-10.4); MONOCYTES % (AUTO) 7 % (2-9); NEUTROPHILS % (AUTO) 84 % (42-75); PLATELET COUNT 158 x10^3/uL (130-400); RED BLOOD COUNT 3.77 x10^6/uL (4.38-5.82); RED CELL DISTRIBUTION WIDTH 13.6 % (9.4-14.8)
[2020-04-14 06:09] LABS: MD NO
[2020-04-14 06:16] LABS: ANION GAP 5 mmol/L (5-15); CHLORIDE 111 mmol/L (98-107); CREATININE 1.05 mg/dL (0.7-1.3)
[2020-04-14 06:17] LABS: BILIRUBIN,TOTAL 0.6 mg/dL (0.2-1.0)
[2020-04-14] MEDS ORDERED: ZINC SULFATE 220 MG CAPSULE PO SCH (09:00)
[2020-04-14] MEDS ORDERED: DEXAMETHASONE 4 MG/ML, 1ML IVPush SCH (09:00)
[2020-04-14] MEDS ORDERED: CHOLECALCIFEROL 5,000u TAB PO SCH (09:00)
[2020-04-14] MEDS: FUROSEMIDE 40 MG/4 ML IV SCH (09:44)
[2020-04-14] MEDS: SODIUM CHLORIDE FLUSH 10ML SYR IVF SCH ×2 (09:45→20:54)
[2020-04-14] MEDS: ASCORBIC ACID 500 MG TABLET PO SCH (09:45)
[2020-04-14] MEDS: FAMOTIDINE 20 MG TABLET PO SCH (09:45)
[2020-04-14] MEDS: INSULIN GLARGINE 100 UNITS/ML, PEN SQ-INSULIN SCH ×2 (09:52→21:07)
[2020-04-14] MEDS: POTASSIUM CHLORIDE 20 MEQ PACKET NG SCH (12:25)
[2020-04-15] MEDS: INSULIN LISPRO 100 UNITS/ML, PEN SQ-INSULIN SCH ×4 (03:00→20:40)
[2020-04-15] MEDS: AMPICILLIN/SULBACTAM 3 GM in SODIUM CHLORIDE 0.9% 100 ML IV SCH ×4 (03:11→20:31)
[2020-04-15 03:45] LABS: MEAN CORPUSCULAR HGB CONC 34.5 g/dL (33.2-36.2); MEAN PLATELET VOLUME 9.3 fL (7.4-10.4); PLATELET COUNT 202 x10^3/uL (130-400); RED BLOOD COUNT 4.02 x10^6/uL (4.38-5.82); RED CELL DISTRIBUTION WIDTH 13.8 % (9.4-14.8)
[2020-04-15 03:55] LABS: ANION GAP 4 mmol/L (5-15); CALCIUM 8.5 mg/dL (8.5-10.1); CHLORIDE 110 mmol/L (98-107); CREATININE 1.09 mg/dL (0.7-1.3); TRIGLYCERIDES 105 mg/dL (50-200)
[2020-04-15 03:56] LABS: BILIRUBIN,TOTAL 0.7 mg/dL (0.2-1.0)
[2020-04-15 04:40] LABS: MD YES
[2020-04-15 04:45] LABS: ANISOCYTOSIS 1+; LYMPH#(MANUAL) 1.43 x10^3/uL (1-3.4); LYMPHS% (MANUAL) 9 % (22-44); METAMYELOCYTES# (MANUAL) 0.16 x10^3/uL (0-0); METAMYELOCYTES% (MANUAL) 1 % (0-1); MONOS#(MANUAL) 0.64 x10^3/uL (0.3-2.7); MONOS% (MANUAL) 4 % (2-9); REACTIVE LYMPHS # (MANUAL) 0.32 x10^3/uL (0-0); REACTIVE LYMPHS % (MANUAL) 2 % (0-0); SEG#(MANUAL) 13.36 x10^3/uL (1.8-6.8); SEGS% (MANUAL) 84 % (42-75)
[2020-04-15 04:46] LABS: <PLATELET ESTIMATE> ADEQUATE; <PLT MORPHOLOGY> NORMAL PLT MORPH
[2020-04-15] MEDS: FENTANYL PF 2,500 MCG in SODIUM CHLORIDE 0.9% 200 ML IV PRN (05:33)
[2020-04-15] MEDS: ARGATROBAN 250 MG in SODIUM CHLORIDE 0.9% 247.5 ML IV PRN (05:33)
[2020-04-15] MEDS: POTASSIUM CHLORIDE 20 MEQ PACKET NG SCH (07:47)
[2020-04-15] MEDS: SODIUM CHLORIDE FLUSH 10ML SYR IVF SCH ×2 (07:47→20:39)
[2020-04-15] MEDS: FAMOTIDINE 20 MG TABLET PO SCH (07:47)
[2020-04-15] MEDS: FUROSEMIDE 40 MG/4 ML IV SCH (07:47)
[2020-04-15] MEDS: INSULIN GLARGINE 100 UNITS/ML, PEN SQ-INSULIN SCH ×2 (07:48→20:40)
[2020-04-15] MEDS: PROPOFOL 100 ML IV PRN (14:19)
[2020-04-16] MEDS: PROPOFOL 100 ML IV PRN ×2 (00:03→16:22)
[2020-04-16] MEDS: AMPICILLIN/SULBACTAM 3 GM in SODIUM CHLORIDE 0.9% 100 ML IV SCH ×4 (02:05→20:51)
[2020-04-16 03:44] LABS: BASOPHILS % (AUTO) 1 % (0-1); EOSINOPHILS % (AUTO) 1 % (1-7); LYMPHOCYTES % (AUTO) 7 % (22-44); MEAN CORPUSCULAR HEMOGLOBIN 31.4 pg (27.5-34.5); MEAN CORPUSCULAR HGB CONC 33.9 g/dL (33.2-36.2); MEAN PLATELET VOLUME 9.1 fL (7.4-10.4); MONOCYTES % (AUTO) 6 % (2-9); NEUTROPHILS % (AUTO) 85 % (42-75); PLATELET COUNT 210 x10^3/uL (130-400); RED BLOOD COUNT 4.03 x10^6/uL (4.38-5.82); RED CELL DISTRIBUTION WIDTH 13.6 % (9.4-14.8)
[2020-04-16 03:51] LABS: ANION GAP 5 mmol/L (5-15); CALCIUM 8.3 mg/dL (8.5-10.1); CHLORIDE 111 mmol/L (98-107); CREATININE 1.09 mg/dL (0.7-1.3)
[2020-04-16 03:52] LABS: BILIRUBIN,TOTAL 0.8 mg/dL (0.2-1.0)
[2020-04-16] MEDS: INSULIN LISPRO 100 UNITS/ML, PEN SQ-INSULIN SCH ×4 (03:55→21:00)
[2020-04-16 04:16] LABS: MD SCAN
[2020-04-16] MEDS: FUROSEMIDE 40 MG/4 ML IV SCH (07:59)
[2020-04-16] MEDS: FAMOTIDINE 20 MG TABLET PO SCH ×2 (07:59→21:02)
[2020-04-16] MEDS: POTASSIUM CHLORIDE 20 MEQ PACKET NG SCH (07:59)
[2020-04-16] MEDS: SODIUM CHLORIDE FLUSH 10ML SYR IVF SCH ×2 (07:59→21:01)
[2020-04-16] MEDS: INSULIN GLARGINE 100 UNITS/ML, PEN SQ-INSULIN SCH ×3 (08:01→21:05)
[2020-04-16] MEDS: FONDAPARINUX 7.5 MG/0.6 ML SQ SCH (10:58)
[2020-04-16] MEDS: NOREPINEPHRINE 8 MG in SODIUM CHLORIDE 0.9% 242 ML IV PRN (13:22)
[2020-04-17] MEDS: AMPICILLIN/SULBACTAM 3 GM in SODIUM CHLORIDE 0.9% 100 ML IV SCH ×4 (02:47→20:40)
[2020-04-17] MEDS: PROPOFOL 100 ML IV PRN (02:48)
[2020-04-17] MEDS: INSULIN LISPRO 100 UNITS/ML, PEN SQ-INSULIN SCH ×4 (04:04→20:59)
[2020-04-17 04:27] LABS: BASOPHILS % (AUTO) 1 % (0-1); EOSINOPHILS % (AUTO) 1 % (1-7); LYMPHOCYTES % (AUTO) 6 % (22-44); MEAN CORPUSCULAR HEMOGLOBIN 31.9 pg (27.5-34.5); MONOCYTES % (AUTO) 4 % (2-9); NEUTROPHILS % (AUTO) 88 % (42-75); PLATELET COUNT 190 x10^3/uL (130-400); RED BLOOD COUNT 3.74 x10^6/uL (4.38-5.82); RED CELL DISTRIBUTION WIDTH 13.7 % (9.4-14.8)
[2020-04-17 04:34] LABS: ANION GAP 7 mmol/L (5-15); CALCIUM 8.2 mg/dL (8.5-10.1); CHLORIDE 110 mmol/L (98-107); CREATININE 1.11 mg/dL (0.7-1.3)
[2020-04-17 04:35] LABS: BILIRUBIN,TOTAL 0.8 mg/dL (0.2-1.0)
[2020-04-17 04:51] LABS: MD SCAN
[2020-04-17] MEDS: FAMOTIDINE 20 MG TABLET PO SCH ×2 (08:21→20:39)
[2020-04-17] MEDS: SODIUM CHLORIDE FLUSH 10ML SYR IVF SCH ×2 (08:21→20:39)
[2020-04-17] MEDS: FUROSEMIDE 40 MG/4 ML IV SCH ×3 (08:21→20:39)
[2020-04-17] MEDS: POTASSIUM CHLORIDE 20 MEQ PACKET NG SCH (08:21)
[2020-04-17] MEDS: INSULIN GLARGINE 100 UNITS/ML, PEN SQ-INSULIN SCH ×2 (08:22→21:04)
[2020-04-17] MEDS: FONDAPARINUX 7.5 MG/0.6 ML SQ SCH (11:53)
[2020-04-17] MEDS: LINEZOLID PMX 600MG/300ML 300 ML IV SCH (18:52)
[2020-04-17] MEDS: ACETAMINOPHEN 650 MG/20.3 ML UDC PO PRN (21:04)
[2020-04-18] MEDS: AMPICILLIN/SULBACTAM 3 GM in SODIUM CHLORIDE 0.9% 100 ML IV SCH ×4 (01:40→20:55)
[2020-04-18] MEDS: INSULIN LISPRO 100 UNITS/ML, PEN SQ-INSULIN SCH ×4 (03:00→20:55)
[2020-04-18] MEDS: ACETAMINOPHEN 650 MG/20.3 ML UDC PO PRN ×2 (03:50→17:33)
[2020-04-18 04:47] LABS: BASOPHILS % (AUTO) 0 % (0-1); EOSINOPHILS % (AUTO) 1 % (1-7); LYMPHOCYTES % (AUTO) 4 % (22-44); MEAN CORPUSCULAR HEMOGLOBIN 31.7 pg (27.5-34.5); MEAN CORPUSCULAR HGB CONC 34.1 g/dL (33.2-36.2); MEAN PLATELET VOLUME 9.1 fL (7.4-10.4); MONOCYTES % (AUTO) 4 % (2-9); NEUTROPHILS % (AUTO) 91 % (42-75); PLATELET COUNT 202 x10^3/uL (130-400); RED CELL DISTRIBUTION WIDTH 13.5 % (9.4-14.8)
[2020-04-18 05:00] LABS: ANION GAP 8 mmol/L (5-15); CALCIUM 8.2 mg/dL (8.5-10.1); CHLORIDE 112 mmol/L (98-107)
[2020-04-18 05:03] LABS: BILIRUBIN,TOTAL 0.9 mg/dL (0.2-1.0); CREATININE 1.32 mg/dL (0.7-1.3); TRIGLYCERIDES 88 mg/dL (50-200)
[2020-04-18 05:18] LABS: MD SCAN
[2020-04-18] MEDS: LINEZOLID PMX 600MG/300ML 300 ML IV SCH ×2 (06:09→17:23)
[2020-04-18] MEDS: POTASSIUM ACID PHOSPHATE 500 MG TABLET.SOL NG SCH ×3 (07:00→17:23)
[2020-04-18] MEDS ORDERED: POTASSIUM CHLORIDE 20 MEQ PACKET NG SCH (09:00)
[2020-04-18] MEDS ORDERED: INSULIN GLARGINE 100 UNITS/ML, PEN SQ-INSULIN SCH ×3 (09:00→21:00)
[2020-04-18] MEDS: FUROSEMIDE 40 MG/4 ML IV SCH ×2 (09:46→20:52)
[2020-04-18] MEDS: SODIUM CHLORIDE FLUSH 10ML SYR IVF SCH ×2 (09:48→20:53)
[2020-04-18] MEDS ORDERED: PROPOFOL 10 MG/ML, 100ML IV ONE (11:00)
[2020-04-18] MEDS ORDERED: ROCURONIUM 10MG/ML,5ML ONE (11:00)
[2020-04-18] MEDS ORDERED: POTASSIUM CHLORIDE 40 MEQ in SODIUM CHLORIDE 0.9% 100 ML IV ONE (12:00)
[2020-04-18] MEDS ORDERED: SODIUM PHOSPHATE 10 MMOL in SODIUM CHLORIDE 0.9% 250 ML IV ONE (12:00)
[2020-04-18] MEDS ORDERED: PROPOFOL 10 MG/ML, 20ML IVPush ONE (12:40)
[2020-04-18] MEDS ORDERED: ROCURONIUM 10 MG/ML,10ML IVPush ONE (12:40)
[2020-04-18] MEDS: PROPOFOL 100 ML IV PRN ×2 (12:45→18:47)
[2020-04-18] MEDS: FONDAPARINUX 7.5 MG/0.6 ML SQ SCH (13:17)
[2020-04-18] MEDS: NOREPINEPHRINE 8 MG in SODIUM CHLORIDE 0.9% 242 ML IV PRN (20:09)
[2020-04-18] MEDS: FAMOTIDINE 20 MG/2 ML IVPush SCH (20:53)
[2020-04-18] MEDS ORDERED: FAMOTIDINE 20 MG/2 ML IVPush SCH (21:00)
[2020-04-19] MEDS: POTASSIUM ACID PHOSPHATE 500 MG TABLET.SOL NG SCH (00:41)
[2020-04-19] MEDS: ACETAMINOPHEN 650 MG/20.3 ML UDC PO PRN (00:41)
[2020-04-19] MEDS: INSULIN LISPRO 100 UNITS/ML, PEN SQ-INSULIN SCH ×4 (03:26→20:30)
[2020-04-19] MEDS: AMPICILLIN/SULBACTAM 3 GM in SODIUM CHLORIDE 0.9% 100 ML IV SCH ×4 (03:27→21:50)
[2020-04-19] MEDS: PROPOFOL 100 ML IV PRN ×4 (03:35→17:50)
[2020-04-19 04:26] LABS: BASOPHILS % (AUTO) 0 % (0-1); EOSINOPHILS % (AUTO) 1 % (1-7); LYMPHOCYTES % (AUTO) 6 % (22-44); MEAN CORPUSCULAR HEMOGLOBIN 31.7 pg (27.5-34.5); MEAN CORPUSCULAR HGB CONC 33.8 g/dL (33.2-36.2); MEAN PLATELET VOLUME 9.2 fL (7.4-10.4); MONOCYTES % (AUTO) 4 % (2-9); NEUTROPHILS % (AUTO) 89 % (42-75); PLATELET COUNT 237 x10^3/uL (130-400); RED BLOOD COUNT 3.67 x10^6/uL (4.38-5.82); RED CELL DISTRIBUTION WIDTH 13.8 % (9.4-14.8)
[2020-04-19 04:39] LABS: ALANINE AMINOTRANSFERASE 23 U/L (12-78); ALBUMIN 1.4 g/dL (3.4-5.0); ANION GAP 7 mmol/L (5-15); CALCIUM 7.7 mg/dL (8.5-10.1); CHLORIDE 111 mmol/L (98-107)
[2020-04-19 04:41] LABS: ALKALINE PHOSPHATASE 213 U/L (45-117); BILIRUBIN,TOTAL 0.7 mg/dL (0.2-1.0); CREATININE 1.53 mg/dL (0.7-1.3); TOTAL PROTEIN 6.6 g/dL (6.4-8.2)
[2020-04-19] MEDS: LINEZOLID PMX 600MG/300ML 300 ML IV SCH ×2 (05:26→17:52)
[2020-04-19 05:46] LABS: MD SCAN
[2020-04-19] MEDS: FUROSEMIDE 40 MG/4 ML IV SCH ×2 (07:59→20:24)
[2020-04-19] MEDS: SODIUM CHLORIDE FLUSH 10ML SYR IVF SCH ×2 (08:10→20:25)
[2020-04-19] MEDS ORDERED: INSULIN GLARGINE 100 UNITS/ML, PEN SQ-INSULIN SCH (09:00)
[2020-04-19] MEDS: POTASSIUM CHLORIDE 20 MEQ PACKET NG SCH ×2 (10:35→17:52)
[2020-04-19] MEDS: FONDAPARINUX 7.5 MG/0.6 ML SQ SCH (10:36)
[2020-04-19] MEDS: FENTANYL PF 2,500 MCG in SODIUM CHLORIDE 0.9% 200 ML IV PRN (10:38)
[2020-04-19] MEDS: FAMOTIDINE 20 MG/2 ML IVPush SCH (20:24)
[2020-04-19] MEDS: INSULIN GLARGINE 100 UNITS/ML, PEN SQ-INSULIN SCH (20:30)
[2020-04-19] MEDS: MIDAZOLAM 1 MG/ML, 2ML IVPush PRN (22:11)
[2020-04-20] MEDS: PROPOFOL 100 ML IV PRN ×5 (00:33→23:09)
[2020-04-20] MEDS: NOREPINEPHRINE 8 MG in SODIUM CHLORIDE 0.9% 242 ML IV PRN ×3 (02:48→22:27)
[2020-04-20] MEDS: INSULIN LISPRO 100 UNITS/ML, PEN SQ-INSULIN SCH ×4 (03:35→20:21)
[2020-04-20] MEDS: AMPICILLIN/SULBACTAM 3 GM in SODIUM CHLORIDE 0.9% 100 ML IV SCH ×2 (03:35→10:06)
[2020-04-20] MEDS: MIDAZOLAM 1 MG/ML, 2ML IVPush PRN ×4 (03:52→14:10)
[2020-04-20 03:57] LABS: HCT (SEDRATE) 33.2 % (39.2-51.8)
[2020-04-20 03:58] LABS: BASOPHILS % (AUTO) 1 % (0-1); EOSINOPHILS % (AUTO) 3 % (1-7); LYMPHOCYTES % (AUTO) 7 % (22-44); MEAN CORPUSCULAR HEMOGLOBIN 31.5 pg (27.5-34.5); MEAN CORPUSCULAR HGB CONC 33.9 g/dL (33.2-36.2); MEAN PLATELET VOLUME 9.1 fL (7.4-10.4); MONOCYTES % (AUTO) 4 % (2-9); NEUTROPHILS % (AUTO) 86 % (42-75); PLATELET COUNT 212 x10^3/uL (130-400); RED BLOOD COUNT 3.58 x10^6/uL (4.38-5.82); RED CELL DISTRIBUTION WIDTH 14.1 % (9.4-14.8)
[2020-04-20 04:11] LABS: ANION GAP 6 mmol/L (5-15); CALCIUM 7.8 mg/dL (8.5-10.1); CHLORIDE 111 mmol/L (98-107)
[2020-04-20 04:18] LABS: MD NO
[2020-04-20 04:19] LABS: BILIRUBIN,TOTAL 0.5 mg/dL (0.2-1.0); CREATINE KINASE, TOTAL 34 U/L (39-308); CREATININE 1.54 mg/dL (0.7-1.3)
[2020-04-20] MEDS: LINEZOLID PMX 600MG/300ML 300 ML IV SCH ×2 (05:31→17:20)
[2020-04-20 05:34] LABS: D-DIMER 1.76 ug/mlFEU (0.00-0.52); FIBRINOGEN > 713 mg/dL (200-340)
[2020-04-20] MEDS: SODIUM CHLORIDE FLUSH 10ML SYR IVF SCH ×2 (07:46→20:15)
[2020-04-20] MEDS: POTASSIUM CHLORIDE 20 MEQ PACKET NG SCH ×2 (07:46→17:17)
[2020-04-20] MEDS: FUROSEMIDE 40 MG/4 ML IV SCH ×2 (07:46→20:14)
[2020-04-20] MEDS: INSULIN GLARGINE 100 UNITS/ML, PEN SQ-INSULIN SCH ×2 (07:48→20:19)
[2020-04-20] MEDS: FONDAPARINUX 7.5 MG/0.6 ML SQ SCH (11:33)
[2020-04-20] MEDS: FAMOTIDINE 20 MG/2 ML IVPush SCH (20:14)
[2020-04-20] MEDS: FENTANYL PF 2,500 MCG in SODIUM CHLORIDE 0.9% 200 ML IV PRN (23:10)
[2020-04-21] MEDS: INSULIN LISPRO 100 UNITS/ML, PEN SQ-INSULIN SCH ×4 (04:41→21:39)
[2020-04-21 04:45] LABS: BASOPHILS % (AUTO) 1 % (0-1); EOSINOPHILS % (AUTO) 4 % (1-7); LYMPHOCYTES % (AUTO) 8 % (22-44); MEAN CORPUSCULAR HEMOGLOBIN 31.5 pg (27.5-34.5); MEAN CORPUSCULAR HGB CONC 33.5 g/dL (33.2-36.2); MEAN PLATELET VOLUME 8.8 fL (7.4-10.4); MONOCYTES % (AUTO) 5 % (2-9); NEUTROPHILS % (AUTO) 82 % (42-75); PLATELET COUNT 224 x10^3/uL (130-400); RED CELL DISTRIBUTION WIDTH 14.3 % (9.4-14.8)
[2020-04-21 04:58] LABS: ANION GAP 4 mmol/L (5-15); BILIRUBIN,TOTAL 0.5 mg/dL (0.2-1.0); CALCIUM 7.7 mg/dL (8.5-10.1); CHLORIDE 112 mmol/L (98-107); CREATININE 1.39 mg/dL (0.7-1.3); TRIGLYCERIDES 135 mg/dL (50-200)
[2020-04-21] MEDS: PROPOFOL 100 ML IV PRN ×4 (05:25→22:40)
[2020-04-21] MEDS: LINEZOLID PMX 600MG/300ML 300 ML IV SCH (05:55)
[2020-04-21 05:56] LABS: MD SCAN
[2020-04-21] MEDS: POTASSIUM CHLORIDE 20 MEQ PACKET NG SCH (08:36)
[2020-04-21] MEDS: FUROSEMIDE 40 MG/4 ML IV SCH (08:37)
[2020-04-21] MEDS: SODIUM CHLORIDE FLUSH 10ML SYR IVF SCH ×2 (08:47→20:56)
[2020-04-21] MEDS: INSULIN GLARGINE 100 UNITS/ML, PEN SQ-INSULIN SCH ×2 (08:48→21:40)
[2020-04-21] MEDS: MIDAZOLAM 1 MG/ML, 2ML IVPush PRN (12:00)
[2020-04-21] MEDS: FONDAPARINUX 7.5 MG/0.6 ML SQ SCH (12:01)
[2020-04-21] MEDS: NOREPINEPHRINE 8 MG in SODIUM CHLORIDE 0.9% 242 ML IV PRN ×2 (12:01→20:58)
[2020-04-21] MEDS ORDERED: POTASSIUM CHLORIDE 20 MEQ PACKET NG SCH (17:00)
[2020-04-21] MEDS: FAMOTIDINE 20 MG/2 ML IVPush SCH (20:56)
[2020-04-22 04:50] LABS: BASOPHILS % (AUTO) 0 % (0-1); EOSINOPHILS % (AUTO) 4 % (1-7); LYMPHOCYTES % (AUTO) 7 % (22-44); MEAN CORPUSCULAR HEMOGLOBIN 31.6 pg (27.5-34.5); MEAN PLATELET VOLUME 8.8 fL (7.4-10.4); MONOCYTES % (AUTO) 6 % (2-9); NEUTROPHILS % (AUTO) 82 % (42-75); PLATELET COUNT 223 x10^3/uL (130-400); RED BLOOD COUNT 3.52 x10^6/uL (4.38-5.82); RED CELL DISTRIBUTION WIDTH 14.1 % (9.4-14.8)
[2020-04-22 04:51] LABS: ANION GAP 4 mmol/L (5-15); CHLORIDE 113 mmol/L (98-107); CREATININE 1.24 mg/dL (0.7-1.3)
[2020-04-22 04:52] LABS: BILIRUBIN,TOTAL 0.5 mg/dL (0.2-1.0)
[2020-04-22 04:56] LABS: D-DIMER 1.86 ug/mlFEU (0.00-0.52)
[2020-04-22] MEDS: PROPOFOL 100 ML IV PRN ×4 (05:04→20:53)
[2020-04-22] MEDS: INSULIN LISPRO 100 UNITS/ML, PEN SQ-INSULIN SCH ×4 (05:06→20:42)
[2020-04-22 05:17] LABS: FIBRINOGEN > 713 mg/dL (200-340)
[2020-04-22 05:54] LABS: MD SCAN
[2020-04-22] MEDS: SODIUM CHLORIDE FLUSH 10ML SYR IVF SCH ×2 (07:54→20:40)
[2020-04-22] MEDS: FUROSEMIDE 40 MG/4 ML IV SCH (07:54)
[2020-04-22] MEDS: INSULIN GLARGINE 100 UNITS/ML, PEN SQ-INSULIN SCH ×2 (07:56→20:43)
[2020-04-22] MEDS: FONDAPARINUX 7.5 MG/0.6 ML SQ SCH (10:26)
[2020-04-22] MEDS: FAMOTIDINE 20 MG/2 ML IVPush SCH (20:41)
[2020-04-22] MEDS: NOREPINEPHRINE 8 MG in SODIUM CHLORIDE 0.9% 242 ML IV PRN (23:58)
[2020-04-23] MEDS: PROPOFOL 100 ML IV PRN ×4 (02:48→20:57)
[2020-04-23] MEDS: INSULIN LISPRO 100 UNITS/ML, PEN SQ-INSULIN SCH ×4 (04:15→21:00)
[2020-04-23 04:28] LABS: BASOPHILS % (AUTO) 0 % (0-1); EOSINOPHILS % (AUTO) 5 % (1-7); LYMPHOCYTES % (AUTO) 9 % (22-44); MEAN CORPUSCULAR HEMOGLOBIN 31.6 pg (27.5-34.5); MEAN CORPUSCULAR HGB CONC 33.6 g/dL (33.2-36.2); MEAN PLATELET VOLUME 8.4 fL (7.4-10.4); MONOCYTES % (AUTO) 6 % (2-9); NEUTROPHILS % (AUTO) 80 % (42-75); PLATELET COUNT 204 x10^3/uL (130-400); RED BLOOD COUNT 3.37 x10^6/uL (4.38-5.82); RED CELL DISTRIBUTION WIDTH 14.3 % (9.4-14.8)
[2020-04-23 04:33] LABS: MD NO
[2020-04-23 04:42] LABS: ANION GAP 3 mmol/L (5-15); CHLORIDE 112 mmol/L (98-107); CREATININE 1.26 mg/dL (0.7-1.3)
[2020-04-23 04:43] LABS: BILIRUBIN,TOTAL 0.5 mg/dL (0.2-1.0)
[2020-04-23] MEDS: FUROSEMIDE 40 MG/4 ML IV SCH (07:28)
[2020-04-23] MEDS: SODIUM CHLORIDE FLUSH 10ML SYR IVF SCH ×2 (07:28→20:57)
[2020-04-23] MEDS: INSULIN GLARGINE 100 UNITS/ML, PEN SQ-INSULIN SCH ×3 (07:30→21:01)
[2020-04-23] MEDS: FONDAPARINUX 7.5 MG/0.6 ML SQ SCH (10:17)
[2020-04-23] MEDS: FAMOTIDINE 20 MG/2 ML IVPush SCH (20:57)
[2020-04-24] MEDS: NOREPINEPHRINE 8 MG in SODIUM CHLORIDE 0.9% 242 ML IV PRN ×2 (02:52→18:04)
[2020-04-24] MEDS: PROPOFOL 100 ML IV PRN ×3 (02:53→21:58)
[2020-04-24] MEDS: FENTANYL PF 2,500 MCG in SODIUM CHLORIDE 0.9% 200 ML IV PRN (02:53)
[2020-04-24] MEDS: INSULIN LISPRO 100 UNITS/ML, PEN SQ-INSULIN SCH ×4 (02:59→19:59)
[2020-04-24 05:35] LABS: MEAN CORPUSCULAR HEMOGLOBIN 31.6 pg (27.5-34.5); MEAN CORPUSCULAR HGB CONC 33.7 g/dL (33.2-36.2); MEAN PLATELET VOLUME 8.4 fL (7.4-10.4); PLATELET COUNT 228 x10^3/uL (130-400); RED BLOOD COUNT 3.25 x10^6/uL (4.38-5.82); RED CELL DISTRIBUTION WIDTH 13.9 % (9.4-14.8)
[2020-04-24 05:46] LABS: ANION GAP 4 mmol/L (5-15); CHLORIDE 111 mmol/L (98-107); CREATININE 1.29 mg/dL (0.7-1.3); TRIGLYCERIDES 112 mg/dL (50-200)
[2020-04-24 05:50] LABS: BILIRUBIN,TOTAL 0.6 mg/dL (0.2-1.0)
[2020-04-24 06:13] LABS: MD YES
[2020-04-24 06:14] LABS: BAND#(MANUAL) 0.61 x10^3/uL; BANDS%(MANUAL) 3 % (0-7); EOS#(MANUAL) 1.22 x10^3/uL (0.0-0.4); EOS% (MANUAL) 6 % (1-7); LYMPH#(MANUAL) 2.03 x10^3/uL (1-3.4); LYMPHS% (MANUAL) 10 % (22-44); METAMYELOCYTES% (MANUAL) 1 % (0-1); MONOS#(MANUAL) 0.61 x10^3/uL (0.3-2.7); MONOS% (MANUAL) 3 % (2-9); MYELOCYTES% (MANUAL) 1 % (0-0); SEG#(MANUAL) 15.43 x10^3/uL (1.8-6.8); SEGS% (MANUAL) 76 % (42-75)
[2020-04-24 06:15] LABS: <PLATELET ESTIMATE> ADEQUATE; <PLT MORPHOLOGY> NORMAL PLT MORPH; <RBC MORPHOLOGY> NORMAL
[2020-04-24] MEDS ORDERED: VANCOMYCIN PER PHARMACY MC PRN (07:30)
[2020-04-24] MEDS: MEROPENEM 1 GM in SODIUM CHLORIDE 0.9% 100 ML IV SCH ×2 (07:59→15:43)
[2020-04-24] MEDS ORDERED: PHARMACOKINETIC MONITORING MC PRN (08:00)
[2020-04-24] MEDS ORDERED: VANCOMYCIN 1,700 MG in SODIUM CHLORIDE 0.9% 250 ML IV ONE ×2 (08:00→20:00)
[2020-04-24] MEDS: INSULIN GLARGINE 100 UNITS/ML, PEN SQ-INSULIN SCH ×2 (09:22→20:01)
[2020-04-24] MEDS: SODIUM CHLORIDE FLUSH 10ML SYR IVF SCH ×2 (09:25→19:58)
[2020-04-24] MEDS: POTASSIUM CHLORIDE 10% 40 MEQ/30 ML UDC PO SCH ×2 (09:25→19:58)
[2020-04-24] MEDS: FUROSEMIDE 40 MG/4 ML IV SCH (09:25)
[2020-04-24] MEDS: FONDAPARINUX 7.5 MG/0.6 ML SQ SCH (09:26)
[2020-04-24 11:41] LABS: MICROSCOPIC AUTO
[2020-04-24] MEDS: FAMOTIDINE 20 MG/2 ML IVPush SCH (19:58)
[2020-04-25] MEDS: PROPOFOL 100 ML IV PRN ×5 (02:22→19:36)
[2020-04-25] MEDS: INSULIN LISPRO 100 UNITS/ML, PEN SQ-INSULIN SCH ×4 (03:41→20:42)
[2020-04-25] MEDS: FENTANYL PF 2,500 MCG in SODIUM CHLORIDE 0.9% 200 ML IV PRN (03:55)
[2020-04-25 04:04] LABS: BASOPHILS % (AUTO) 1 % (0-1); EOSINOPHILS % (AUTO) 6 % (1-7); LYMPHOCYTES % (AUTO) 8 % (22-44); MEAN CORPUSCULAR HEMOGLOBIN 31.6 pg (27.5-34.5); MEAN CORPUSCULAR HGB CONC 33.7 g/dL (33.2-36.2); MEAN PLATELET VOLUME 8.4 fL (7.4-10.4); MONOCYTES % (AUTO) 7 % (2-9); NEUTROPHILS % (AUTO) 79 % (42-75); PLATELET COUNT 230 x10^3/uL (130-400); RED BLOOD COUNT 3.24 x10^6/uL (4.38-5.82); RED CELL DISTRIBUTION WIDTH 14.6 % (9.4-14.8)
[2020-04-25 04:17] LABS: ANION GAP 6 mmol/L (5-15); CALCIUM 7.9 mg/dL (8.5-10.1); CHLORIDE 114 mmol/L (98-107); CREATININE 1.17 mg/dL (0.7-1.3)
[2020-04-25 04:19] LABS: BILIRUBIN,TOTAL 0.6 mg/dL (0.2-1.0)
[2020-04-25 04:29] LABS: MD SCAN
[2020-04-25] MEDS: NOREPINEPHRINE 8 MG in SODIUM CHLORIDE 0.9% 242 ML IV PRN ×2 (06:15→17:33)
[2020-04-25] MEDS ORDERED: SODIUM PHOSPHATE 20 MMOL in SODIUM CHLORIDE 0.9% 500 ML IV ONE (07:30)
[2020-04-25] MEDS: MEROPENEM 1 GM in SODIUM CHLORIDE 0.9% 100 ML IV SCH ×3 (07:31→15:58)
[2020-04-25] MEDS: SODIUM CHLORIDE FLUSH 10ML SYR IVF SCH ×2 (09:00→20:34)
[2020-04-25] MEDS: INSULIN GLARGINE 100 UNITS/ML, PEN SQ-INSULIN SCH ×2 (09:01→21:08)
[2020-04-25] MEDS: FUROSEMIDE 40 MG/4 ML IV SCH (09:01)
[2020-04-25] MEDS: FONDAPARINUX 7.5 MG/0.6 ML SQ SCH (10:24)
[2020-04-25] MEDS: DEXTROSE 5% IV SCH (14:24)
[2020-04-25] MEDS: VORICONAZOLE IV SCH (14:24)
[2020-04-25] MEDS: FAMOTIDINE 20 MG/2 ML IVPush SCH (20:34)
[2020-04-25] MEDS: VANCOMYCIN 1,700 MG in SODIUM CHLORIDE 0.9% 250 ML IV SCH (20:34)
[2020-04-26] MEDS: PROPOFOL 100 ML IV PRN ×5 (00:05→23:29)
[2020-04-26] MEDS: MEROPENEM 1 GM in SODIUM CHLORIDE 0.9% 100 ML IV SCH ×4 (00:05→23:28)
[2020-04-26] MEDS: FENTANYL PF 2,500 MCG in SODIUM CHLORIDE 0.9% 200 ML IV PRN ×2 (00:07→18:05)
[2020-04-26] MEDS: ACETAMINOPHEN 650 MG/20.3 ML UDC PO PRN ×2 (00:55→12:13)
[2020-04-26] MEDS: NOREPINEPHRINE 8 MG in SODIUM CHLORIDE 0.9% 242 ML IV PRN ×3 (02:42→23:29)
[2020-04-26] MEDS: VORICONAZOLE IV SCH ×2 (02:44→16:06)
[2020-04-26] MEDS: DEXTROSE 5% IV SCH ×2 (02:44→16:06)
[2020-04-26] MEDS: INSULIN LISPRO 100 UNITS/ML, PEN SQ-INSULIN SCH ×4 (02:48→19:47)
[2020-04-26 03:01] LABS: BASOPHILS % (AUTO) 1 % (0-1); EOSINOPHILS % (AUTO) 6 % (1-7); LYMPHOCYTES % (AUTO) 9 % (22-44); MEAN CORPUSCULAR HEMOGLOBIN 31.7 pg (27.5-34.5); MEAN CORPUSCULAR HGB CONC 33.7 g/dL (33.2-36.2); MEAN PLATELET VOLUME 8.2 fL (7.4-10.4); MONOCYTES % (AUTO) 7 % (2-9); NEUTROPHILS % (AUTO) 78 % (42-75); PLATELET COUNT 261 x10^3/uL (130-400); RED CELL DISTRIBUTION WIDTH 14.5 % (9.4-14.8)
[2020-04-26 03:12] LABS: ANION GAP 4 mmol/L (5-15); CALCIUM 7.5 mg/dL (8.5-10.1); CHLORIDE 113 mmol/L (98-107); CREATININE 1.13 mg/dL (0.7-1.3)
[2020-04-26 03:13] LABS: BILIRUBIN,TOTAL 0.6 mg/dL (0.2-1.0)
[2020-04-26 03:31] LABS: MD SCAN
[2020-04-26] MEDS: SODIUM CHLORIDE FLUSH 10ML SYR IVF SCH ×2 (08:41→20:41)
[2020-04-26] MEDS: INSULIN GLARGINE 100 UNITS/ML, PEN SQ-INSULIN SCH ×2 (08:41→19:46)
[2020-04-26] MEDS: FUROSEMIDE 40 MG/4 ML IV SCH (08:42)
[2020-04-26] MEDS ORDERED: VORICONAZOLE IV SCH (12:00)
[2020-04-26] MEDS ORDERED: DEXTROSE 5% IV SCH (12:00)
[2020-04-26] MEDS: FONDAPARINUX 7.5 MG/0.6 ML SQ SCH (12:13)
[2020-04-26] MEDS: VANCOMYCIN 1,700 MG in SODIUM CHLORIDE 0.9% 250 ML IV SCH (20:35)
[2020-04-26] MEDS: FAMOTIDINE 20 MG/2 ML IVPush SCH (20:41)
[2020-04-27] MEDS: INSULIN LISPRO 100 UNITS/ML, PEN SQ-INSULIN SCH ×4 (03:11→20:30)
[2020-04-27] MEDS: ACETAMINOPHEN 650 MG/20.3 ML UDC PO PRN ×2 (03:12→14:57)
[2020-04-27] MEDS: VORICONAZOLE IV SCH ×2 (03:14→16:57)
[2020-04-27] MEDS: DEXTROSE 5% IV SCH ×2 (03:14→16:57)
[2020-04-27] MEDS: PROPOFOL 100 ML IV PRN ×5 (03:21→22:54)
[2020-04-27 03:50] LABS: BASOPHILS % (AUTO) 1 % (0-1); EOSINOPHILS % (AUTO) 5 % (1-7); LYMPHOCYTES % (AUTO) 8 % (22-44); MEAN CORPUSCULAR HEMOGLOBIN 31.3 pg (27.5-34.5); MEAN CORPUSCULAR HGB CONC 33.5 g/dL (33.2-36.2); MEAN PLATELET VOLUME 8.2 fL (7.4-10.4); MONOCYTES % (AUTO) 6 % (2-9); NEUTROPHILS % (AUTO) 81 % (42-75); PLATELET COUNT 268 x10^3/uL (130-400); RED BLOOD COUNT 3.19 x10^6/uL (4.38-5.82); RED CELL DISTRIBUTION WIDTH 14.9 % (9.4-14.8)
[2020-04-27 03:57] LABS: ANION GAP 4 mmol/L (5-15); CALCIUM 7.7 mg/dL (8.5-10.1); CHLORIDE 111 mmol/L (98-107)
[2020-04-27 03:59] LABS: BILIRUBIN,TOTAL 0.7 mg/dL (0.2-1.0); CREATININE 1.07 mg/dL (0.7-1.3); TRIGLYCERIDES 157 mg/dL (50-200)
[2020-04-27 04:27] LABS: MD SCAN
[2020-04-27] MEDS: ALBUMIN HUMAN 25% 100 ML IV SCH ×3 (07:22→22:18)
[2020-04-27] MEDS: FUROSEMIDE 40 MG/4 ML IV SCH ×2 (07:23→18:05)
[2020-04-27] MEDS: MEROPENEM 1 GM in SODIUM CHLORIDE 0.9% 100 ML IV SCH ×3 (07:23→23:45)
[2020-04-27] MEDS: SODIUM CHLORIDE FLUSH 10ML SYR IVF SCH ×2 (07:24→20:30)
[2020-04-27] MEDS: INSULIN GLARGINE 100 UNITS/ML, PEN SQ-INSULIN SCH ×2 (07:58→20:32)
[2020-04-27] MEDS: NOREPINEPHRINE 8 MG in SODIUM CHLORIDE 0.9% 242 ML IV PRN ×2 (09:19→18:09)
[2020-04-27] MEDS: FONDAPARINUX 7.5 MG/0.6 ML SQ SCH (10:53)
[2020-04-27] MEDS: FENTANYL PF 2,500 MCG in SODIUM CHLORIDE 0.9% 200 ML IV PRN (14:35)
[2020-04-27] MEDS: FAMOTIDINE 20 MG/2 ML IVPush SCH (20:30)
[2020-04-27] MEDS: VANCOMYCIN 1,700 MG in SODIUM CHLORIDE 0.9% 250 ML IV SCH (20:30)
[2020-04-28] MEDS: ACETAMINOPHEN 650 MG/20.3 ML UDC PO PRN ×3 (02:11→23:53)
[2020-04-28] MEDS: DEXTROSE 5% IV SCH ×2 (04:13→16:58)
[2020-04-28] MEDS: VORICONAZOLE IV SCH ×2 (04:13→16:58)
[2020-04-28] MEDS: PROPOFOL 100 ML IV PRN ×5 (04:13→23:53)
[2020-04-28] MEDS: INSULIN LISPRO 100 UNITS/ML, PEN SQ-INSULIN SCH ×4 (04:19→20:45)
[2020-04-28 04:37] LABS: BASOPHILS % (AUTO) 1 % (0-1); EOSINOPHILS % (AUTO) 6 % (1-7); LYMPHOCYTES % (AUTO) 8 % (22-44); MEAN CORPUSCULAR HEMOGLOBIN 32.1 pg (27.5-34.5); MEAN CORPUSCULAR HGB CONC 34.2 g/dL (33.2-36.2); MEAN PLATELET VOLUME 8.1 fL (7.4-10.4); MONOCYTES % (AUTO) 6 % (2-9); NEUTROPHILS % (AUTO) 80 % (42-75); PLATELET COUNT 239 x10^3/uL (130-400); RED BLOOD COUNT 2.81 x10^6/uL (4.38-5.82); RED CELL DISTRIBUTION WIDTH 14.9 % (9.4-14.8)
[2020-04-28 04:50] LABS: ANION GAP 6 mmol/L (5-15); CHLORIDE 110 mmol/L (98-107)
[2020-04-28 04:54] LABS: BILIRUBIN,TOTAL 1.1 mg/dL (0.2-1.0); CREATININE 1.18 mg/dL (0.7-1.3)
[2020-04-28 05:55] LABS: MD SCAN
[2020-04-28] MEDS: FUROSEMIDE 40 MG/4 ML IV SCH ×2 (06:45→16:58)
[2020-04-28] MEDS: ALBUMIN HUMAN 25% 100 ML IV SCH ×3 (06:45→22:02)
[2020-04-28] MEDS: NOREPINEPHRINE 8 MG in SODIUM CHLORIDE 0.9% 242 ML IV PRN ×2 (06:46→18:20)
[2020-04-28] MEDS: FENTANYL PF 2,500 MCG in SODIUM CHLORIDE 0.9% 200 ML IV PRN (06:46)
[2020-04-28] MEDS: SULFAMETH./TRIMETHOPRIM DS 800MG/160MG TABLET PO SCH ×3 (08:07→20:44)
[2020-04-28] MEDS: SODIUM CHLORIDE FLUSH 10ML SYR IVF SCH ×2 (08:07→20:44)
[2020-04-28] MEDS: INSULIN GLARGINE 100 UNITS/ML, PEN SQ-INSULIN SCH ×2 (08:08→20:45)
[2020-04-28] MEDS: FONDAPARINUX 7.5 MG/0.6 ML SQ SCH (11:19)
[2020-04-28] MEDS: MIDAZOLAM 1 MG/ML, 2ML IVPush PRN (11:51)
[2020-04-28] MEDS: FAMOTIDINE 20 MG/2 ML IVPush SCH (20:44)
[2020-04-29] MEDS: SULFAMETH./TRIMETHOPRIM DS 800MG/160MG TABLET PO SCH ×4 (03:00→20:07)
[2020-04-29] MEDS: SENNA/DOCUSATE TABLET NG PRN (03:00)
[2020-04-29] MEDS: INSULIN LISPRO 100 UNITS/ML, PEN SQ-INSULIN SCH ×4 (03:00→20:02)
[2020-04-29] MEDS: DEXTROSE 5% IV SCH ×2 (03:33→16:48)
[2020-04-29] MEDS: VORICONAZOLE IV SCH ×2 (03:33→16:48)
[2020-04-29 03:43] LABS: BASOPHILS % (AUTO) 0 % (0-1); EOSINOPHILS % (AUTO) 6 % (1-7); LYMPHOCYTES % (AUTO) 10 % (22-44); MEAN CORPUSCULAR HEMOGLOBIN 31.6 pg (27.5-34.5); MEAN PLATELET VOLUME 8.4 fL (7.4-10.4); MONOCYTES % (AUTO) 5 % (2-9); NEUTROPHILS % (AUTO) 78 % (42-75); PLATELET COUNT 260 x10^3/uL (130-400); RED BLOOD COUNT 2.83 x10^6/uL (4.38-5.82); RED CELL DISTRIBUTION WIDTH 15.3 % (9.4-14.8)
[2020-04-29 03:51] LABS: ANION GAP 4 mmol/L (5-15); CALCIUM 7.8 mg/dL (8.5-10.1); CHLORIDE 107 mmol/L (98-107)
[2020-04-29 04:31] LABS: MD SCAN
[2020-04-29] MEDS: FENTANYL PF 2,500 MCG in SODIUM CHLORIDE 0.9% 200 ML IV PRN (05:01)
[2020-04-29] MEDS: ALBUMIN HUMAN 25% 100 ML IV SCH ×3 (05:01→23:23)
[2020-04-29] MEDS: PROPOFOL 100 ML IV PRN ×5 (05:02→23:48)
[2020-04-29] MEDS: FUROSEMIDE 40 MG/4 ML IV SCH ×2 (05:02→17:40)
[2020-04-29] MEDS ORDERED: POTASSIUM PHOSPHATE 22 MEQ in SODIUM CHLORIDE 0.9% 500 ML IV ONE (07:00)
[2020-04-29] MEDS: SODIUM CHLORIDE FLUSH 10ML SYR IVF SCH ×2 (07:50→19:59)
[2020-04-29] MEDS: INSULIN GLARGINE 100 UNITS/ML, PEN SQ-INSULIN SCH ×2 (09:41→20:00)
[2020-04-29] MEDS: ACETAMINOPHEN 650 MG/20.3 ML UDC PO PRN (09:43)
[2020-04-29] MEDS: METHYLNALTREXONE 12 MG/0.6 ML SYR SQ PRN (09:43)
[2020-04-29] MEDS: FONDAPARINUX 7.5 MG/0.6 ML SQ SCH (11:09)
[2020-04-29] MEDS: NOREPINEPHRINE 8 MG in SODIUM CHLORIDE 0.9% 242 ML IV PRN (18:49)
[2020-04-29] MEDS: MIDAZOLAM 1 MG/ML, 2ML IVPush PRN (19:53)
[2020-04-29] MEDS: FAMOTIDINE 20 MG/2 ML IVPush SCH (19:59)
[2020-04-29] MEDS ORDERED: AMIODARONE 150 MG in DEXTROSE 5% 100 ML IV ONE (20:30)
[2020-04-29] MEDS: FILTER 0.22 MICRON IV PRN (21:31)
[2020-04-29] MEDS: AMIODARONE 450 MG in DEXTROSE 5% 241 ML IV PRN (21:32)
[2020-04-29] MEDS ORDERED: CATHFLO-ALTEPLASE 2 MG/2 ML CATHFLUSH ONE (22:30)
[2020-04-30] MEDS: FENTANYL PF 2,500 MCG in SODIUM CHLORIDE 0.9% 200 ML IV PRN ×2 (02:33→21:29)
[2020-04-30] MEDS: PROPOFOL 100 ML IV PRN ×5 (03:00→21:30)
[2020-04-30] MEDS: SULFAMETH./TRIMETHOPRIM DS 800MG/160MG TABLET PO SCH ×4 (03:00→21:28)
[2020-04-30] MEDS: INSULIN LISPRO 100 UNITS/ML, PEN SQ-INSULIN SCH ×4 (04:02→21:34)
[2020-04-30 04:10] LABS: BASOPHILS % (AUTO) 1 % (0-1); EOSINOPHILS % (AUTO) 5 % (1-7); LYMPHOCYTES % (AUTO) 11 % (22-44); MEAN CORPUSCULAR HEMOGLOBIN 31.3 pg (27.5-34.5); MEAN CORPUSCULAR HGB CONC 33.4 g/dL (33.2-36.2); MEAN PLATELET VOLUME 8.5 fL (7.4-10.4); MONOCYTES % (AUTO) 6 % (2-9); NEUTROPHILS % (AUTO) 77 % (42-75); PLATELET COUNT 257 x10^3/uL (130-400); RED BLOOD COUNT 2.71 x10^6/uL (4.38-5.82); RED CELL DISTRIBUTION WIDTH 14.8 % (9.4-14.8)
[2020-04-30 04:11] LABS: MD NO
[2020-04-30 04:20] LABS: ANION GAP 7 mmol/L (5-15); CALCIUM 8.2 mg/dL (8.5-10.1); CHLORIDE 107 mmol/L (98-107); CREATININE 1.55 mg/dL (0.7-1.3)
[2020-04-30 04:21] LABS: BILIRUBIN,TOTAL 1.4 mg/dL (0.2-1.0); TRIGLYCERIDES 246 mg/dL (50-200)
[2020-04-30] MEDS: DEXTROSE 5% IV SCH ×2 (04:30→16:23)
[2020-04-30] MEDS: AMIODARONE 450 MG in DEXTROSE 5% 241 ML IV PRN (04:30)
[2020-04-30] MEDS: VORICONAZOLE IV SCH ×2 (04:30→16:23)
[2020-04-30] MEDS: FILTER 0.22 MICRON IV PRN (04:30)
[2020-04-30] MEDS: FUROSEMIDE 40 MG/4 ML IV SCH (06:03)
[2020-04-30] MEDS: SODIUM CHLORIDE FLUSH 10ML SYR IVF SCH ×2 (07:35→21:27)
[2020-04-30] MEDS: NOREPINEPHRINE 8 MG in SODIUM CHLORIDE 0.9% 242 ML IV PRN ×2 (07:51→18:53)
[2020-04-30] MEDS: ALBUMIN HUMAN 25% 100 ML IV SCH ×2 (07:53→16:24)
[2020-04-30] MEDS: METHYLNALTREXONE 12 MG/0.6 ML SYR SQ PRN (07:55)
[2020-04-30] MEDS: FONDAPARINUX 7.5 MG/0.6 ML SQ SCH (09:44)
[2020-04-30] MEDS: OXYcodone 5 MG/5 ML ORAL.SOL UDC PO SCH ×4 (09:45→21:28)
[2020-04-30] MEDS: QUETIAPINE 25MG TABLET PO SCH ×2 (09:45→21:29)
[2020-04-30] MEDS: AMIODARONE 200 MG TABLET PO SCH ×2 (09:45→21:28)
[2020-04-30] MEDS: INSULIN GLARGINE 100 UNITS/ML, PEN SQ-INSULIN SCH ×2 (09:47→21:35)
[2020-04-30] MEDS: ACETAMINOPHEN 650 MG/20.3 ML UDC PO PRN (13:22)
[2020-04-30] MEDS: FAMOTIDINE 20 MG/2 ML IVPush SCH (21:27)
[2020-05-01] MEDS: ALBUMIN HUMAN 25% 100 ML IV SCH ×2 (00:05→08:06)
[2020-05-01] MEDS: OXYcodone 5 MG/5 ML ORAL.SOL UDC PO SCH ×3 (01:24→10:29)
[2020-05-01] MEDS: PROPOFOL 100 ML IV PRN ×2 (01:24→05:40)
[2020-05-01] MEDS: SULFAMETH./TRIMETHOPRIM DS 800MG/160MG TABLET PO SCH ×2 (03:04→08:09)
[2020-05-01] MEDS: INSULIN LISPRO 100 UNITS/ML, PEN SQ-INSULIN SCH ×2 (03:45→08:10)
[2020-05-01] MEDS: DEXTROSE 5% IV SCH (03:46)
[2020-05-01] MEDS: NOREPINEPHRINE 8 MG in SODIUM CHLORIDE 0.9% 242 ML IV PRN (03:46)
[2020-05-01] MEDS: VORICONAZOLE IV SCH (03:46)
[2020-05-01 03:59] LABS: BASOPHILS % (AUTO) 1 % (0-1); EOSINOPHILS % (AUTO) 6 % (1-7); LYMPHOCYTES % (AUTO) 13 % (22-44); MEAN CORPUSCULAR HEMOGLOBIN 31.5 pg (27.5-34.5); MEAN CORPUSCULAR HGB CONC 33.7 g/dL (33.2-36.2); MEAN PLATELET VOLUME 8.7 fL (7.4-10.4); MONOCYTES % (AUTO) 7 % (2-9); NEUTROPHILS % (AUTO) 73 % (42-75); PLATELET COUNT 265 x10^3/uL (130-400); RED BLOOD COUNT 2.58 x10^6/uL (4.38-5.82); RED CELL DISTRIBUTION WIDTH 15.3 % (9.4-14.8)
[2020-05-01 04:07] LABS: MD NO
[2020-05-01 04:13] LABS: ANION GAP 5 mmol/L (5-15); CALCIUM 7.9 mg/dL (8.5-10.1); CHLORIDE 107 mmol/L (98-107)
[2020-05-01 04:16] LABS: BILIRUBIN,TOTAL 1.7 mg/dL (0.2-1.0); CREATININE 1.95 mg/dL (0.7-1.3)
[2020-05-01] MEDS: INSULIN GLARGINE 100 UNITS/ML, PEN SQ-INSULIN SCH (08:08)
[2020-05-01] MEDS: AMIODARONE 200 MG TABLET PO SCH (08:09)
[2020-05-01] MEDS: SODIUM CHLORIDE FLUSH 10ML SYR IVF SCH (08:09)
[2020-05-01] MEDS: QUETIAPINE 25MG TABLET PO SCH (08:09)
[2020-05-01] MEDS ORDERED: FUROSEMIDE 40 MG/4 ML IV SCH (09:00)
[2020-05-01] MEDS ORDERED: MORPHINE SULFATE 4 MG/ML, 1ML IVPush PRN (09:30)
[2020-05-01] MEDS ORDERED: LORazepam 2 MG/ML, 1ML IVPush PRN (09:30)
[2020-05-01] MEDS ORDERED: LORazepam 2 MG/ML, 1ML IV ONE (09:30)
[2020-05-01] MEDS ORDERED: MORPHINE SULFATE 4 MG/ML, 1ML IV ONE (09:30)
== END 2020-05-01 10:59 | disposition expired | DRG 870 ==
LOC: ED 18:58 → EDBD 19:05 → EDIP 19:05 → ED 19:54 → ICU 20:43
PROVIDERS: ADMIT Family Medicine; ATTEND Hospitalist
PROC: 5A1955Z Respiratory Ventilation, Greater than 96 Consecutive Hours (ICD-10-PCS; principal; 2020-04-03)
PROC: 0BH17EZ Insertion of Endotracheal Airway into Trachea, Via Natural or Artificial Opening (ICD-10-PCS; 2020-04-03)
PROC: 0T9B70Z Drainage of Bladder with Drainage Device, Via Natural or Artificial Opening (ICD-10-PCS; 2020-04-03)
PROC: 02HV33Z Insertion of Infusion Device into Superior Vena Cava, Percutaneous Approach (ICD-10-PCS; 2020-04-03)
PROC: B548ZZA Ultrasonography of Superior Vena Cava, Guidance (ICD-10-PCS; 2020-04-03)
PROC: XW033E5 Introduction of Remdesivir Anti-infective into Peripheral Vein, Percutaneous Approach, New Technology Group 5 (ICD-10-PCS; 2020-04-05)
PROC: 0BP1XDZ Removal of Intraluminal Device from Trachea, External Approach (ICD-10-PCS; 2020-04-17)
PROC: 5A1955Z Respiratory Ventilation, Greater than 96 Consecutive Hours (ICD-10-PCS; 2020-04-18)
PROC: 0BH17EZ Insertion of Endotracheal Airway into Trachea, Via Natural or Artificial Opening (ICD-10-PCS; 2020-04-18)
PROC: 0T9B70Z Drainage of Bladder with Drainage Device, Via Natural or Artificial Opening (ICD-10-PCS; 2020-04-24)
DX: A41.89 Other specified sepsis (principal); U07.1 COVID-19; R65.21 Severe sepsis with septic shock; J15.211 Pneumonia due to Methicillin susceptible Staphylococcus aureus; J12.82 Pneumonia due to coronavirus disease 2019; N17.0 Acute kidney failure with tubular necrosis; G93.41 Metabolic encephalopathy; J80 Acute respiratory distress syndrome; J15.6 Pneumonia due to other Gram-negative bacteria; E43 Unspecified severe protein-calorie malnutrition; E87.2 Acidosis; Z99.11 Dependence on respirator [ventilator] status; L03.113 Cellulitis of right upper limb; E87.0 Hyperosmolality and hypernatremia; D75.82 Heparin induced thrombocytopenia (HIT); Z66 Do not resuscitate; Z51.5 Encounter for palliative care; D64.9 Anemia, unspecified; E11.65 Type 2 diabetes mellitus with hyperglycemia; I48.0 Paroxysmal atrial fibrillation; K60.2 Anal fissure, unspecified; R57.1 Hypovolemic shock; E83.39 Other disorders of phosphorus metabolism; D75.1 Secondary polycythemia; E86.0 Dehydration; E87.8 Other disorders of electrolyte and fluid balance, not elsewhere classified; Z79.899 Other long term (current) drug therapy; Z68.28 Body mass index [BMI] 28.0-28.9, adult
CPT/HCPCS: 31500; 36415; 36556; 36600; 70450; 71045; 80048; 80053; 80069; 80202; 80307; 81001; 82010; 82247; 82248; 82330; 82436; 82550; 82728; 82803; 82947; 82962; 83036; 83605; 83615; 83735; 83930; 83935; 84100; 84133; 84145; 84300; 84478; 85025; 85049; 85379; 85384; 85610; 85651; 85730; 86022; 86140; 87040; 87070; 87077; 87081; 87107; 87147; 87186; 87205; 87305; 93005; 94002; 94003; 94660; 99292; G0378; J0295; J0456; J0696; J0883; J1100; J1644; J1815; J1940; J2020; J2185; J2250; J2704; J3010; J3370; J3411; J3465; J3480; J7030; J7060; J7070; P9047; J0282; J0330; J1652; J2060; J2270; J7040; J7050; U0003